=== PATIENT | male | born 1960 | race Caucasian/White ===

== ENCOUNTER 2017-06-23 05:53 | Emergency (ER) | payer BC, OTHER ==
[2017-06-23] MEDS ORDERED: SODIUM CHLORIDE 0.9% 1,000 ML IV STA (06:10)
[2017-06-23] MEDS ORDERED: SODIUM CHLORIDE 0.9% 2,000 ML IV STA (06:10)
[2017-06-23] MEDS ORDERED: ONDANSETRON 4 MG/2 ML VIAL IVP STA (06:10)
[2017-06-23 06:50] LABS: Basophils % (A) 0 %; CH 31.5; CHCM 34.1; Eosinophils # (A) 0.1 k/uL (0-0.7); Eosinophils % (A) 2 %; HCT 47.8 % (39.0-53.0); HDW 2.33; Luc # (Auto) 0.04; Luc % (Auto) 0; Lymphocytes # (A) 0.2 k/uL (1.0-4.8); Lymphocytes % (A) 2 %; MCHC 33.5 g/dL (31.0-37.0); MCV 92.7 fL (80.0-100.0); Mean Platelet Volume 7.6; Monocytes # (A) 0.4 k/uL (0-1.0); Monocytes % (A) 4 %; Neutrophils # (A) 8.6 k/uL (1.3-7.7); Neutrophils % (A) 92 %; RBC 5.16 m/uL (4.30-5.90); RDW 14.1 % (11.5-15.5); WBC 9.3 k/uL (3.8-10.6); WBC (Perox) 9.59
--- NOTE | 2017-06-23 06:50 | ED ---
Nausea/Vomiting/Diarrhea HPI - General Source: patient, family, RN notes reviewed Mode of arrival: ambulatory Limitations: no limitations - History of Present Illness MD complaint: nausea, vomiting <Gamal Garza - Last Filed: 06/23/17 06:56> <Gamal Craig - Last Filed: 06/23/17 07:45> - General Chief complaint: Nausea/Vomiting/Diarrhea Stated complaint: Vomiting Time Seen by Provider: 06/23/17 06:05 - History of Present Illness Initial comments: This is a 56-year-old male who states he had the onset of nausea vomiting last evening approximately 11 PM. This was several hours after eating at a local restaurant. He has some abdominal pain he's vomited multiple times he complains of a headache no overt dizziness no fevers or sweats he does some chills. (Gamal Garza) - Related Data Home Medications Medication Instructions Recorded Confirmed Atorvastatin [Lipitor] 20 mg PO DAILY 06/23/17 06/23/17 Lisinopril [Prinivil] 10 mg PO DAILY 06/23/17 06/23/17 Meloxicam [Mobic] 15 mg PO DAILY 06/23/17 06/23/17 Previous Rx's Medication Instructions Recorded Ondansetron Odt [Zofran Odt] 4 mg PO Q8HR PRN #10 tab 06/23/17 Allergies Allergy/AdvReac Type Severity Reaction Status Date / Time No Known Allergies Allergy Verified 06/23/17 07:03 Review of Systems ROS Other: All systems not noted in ROS Statement are negative. <Gamal Garza - Last Filed: 06/23/17 06:56> ROS Other: All systems not noted in ROS Statement are negative. <Gamal Craig - Last Filed: 06/23/17 07:45> ROS Statement: Those systems with pertinent positive or pertinent negative responses have been documented in the HPI. Past Medical History Past Medical History: Hypertension History of Any Multi-Drug Resistant Organisms: None Reported Past Surgical History: Hernia Repair, Orthopedic Surgery Additional Past Surgical History / Comment(s): right knee Past Psychological History: No Psychological Hx Reported Smoking Status: Former smoker Past Alcohol Use History: None Reported Past Drug Use History: None Reported <Gamal Garza - Last Filed: 06/23/17 06:56> General Exam Limitations: no limitations General appearance: alert, in no apparent distress Head exam: Present: atraumatic, normocephalic, normal inspection Eye exam: Present: normal appearance, PERRL, EOMI. Absent: scleral icterus, conjunctival injection, periorbital swelling ENT exam: Present: mucous membranes dry Neck exam: Present: normal inspection. Absent: tenderness, meningismus, lymphadenopathy Respiratory exam: Present: normal lung sounds bilaterally. Absent: respiratory distress, wheezes, rales, rhonchi, stridor Cardiovascular Exam: Present: normal rhythm, tachycardia, normal heart sounds. Absent: systolic murmur, diastolic murmur, rubs, gallop, clicks GI/Abdominal exam: Present: soft, normal bowel sounds. Absent: distended, tenderness, guarding, rebound, rigid Extremities exam: Present: normal inspection, full ROM, normal capillary refill. Absent: tenderness, pedal edema, joint swelling, calf tenderness Back exam: Present: normal inspection Neurological exam: Present: alert, oriented X3, CN II-XII intact Psychiatric exam: Present: normal affect, normal mood Skin exam: Present: warm, dry, intact, normal color. Absent: rash <Gamal Garza - Last Filed: 06/23/17 06:56> <Gamal Craig N - Last Filed: 06/23/17 07:45> - General Exam Comments Initial Comments: Is a well-developed well-nourished awake alert oriented 3 male (Gamal Garza) Course <Gamal Garza - Last Filed: 06/23/17 06:56> <Gamal Craig - Last Filed: 06/23/17 07:45> Vital Signs 06/23/17 06/23/17 05:55 07:06 Temperature 98.8 F Pulse Rate 119 H 102 H Respiratory 20 18 Rate Blood Pressure 139/93 124/79 O2 Sat by Pulse 96 96 Oximetry - Reevaluation(s) Reevaluation #1: 06/23/17 06:56 The patient is started feel little bit better at this point labs are pending at this time the patient's care will be endorsed to Dr. Craig will make the final disposition (Gamal Garza) Medical Decision Making <Gamal Garza - Last Filed: 06/23/17 06:56> - Lab Data Result diagrams: 06/23/17 06:41 06/23/17 06:41 <Gamal Craig - Last Filed: 06/23/17 07:45> - Medical Decision Making Patient's care was signed out at shift change, awaiting laboratory studies and x -ray. I did reevaluate the patient. History consistent with food poisoning versus gastroenteritis. Patient is feeling much better. Abdomen soft nontender. Normal bowel sounds. Laboratory studies reveal white blood cell count 9.3, electrolytes within normal limits. X-ray of the abdomen shows normal gas pattern, no acute findings. EKG shows sinus rhythm with PACs, ventricular rate 99, MA interval 174, QRS duration 86, QTC 444, no signs of ischemia. Patient will return to emergency department with worsening symptoms. (Gamal Craig) - Lab Data Lab Results 06/23/17 06/23/17 06/23/17 Range/Units 06:41 06:41 06:41 WBC 9.3 (3.8-10.6) k/uL RBC 5.16 (4.30-5.90) m/uL Hgb 16.0 (13.0-17.5) gm/dL Hct 47.8 (39.0-53.0) % MCV 92.7 (80.0-100.0) fL MCH 31.0 (25.0-35.0) pg MCHC 33.5 (31.0-37.0) g/dL RDW 14.1 (11.5-15.5) % Plt Count 198 (150-450) k/uL Neutrophils % 92 % Lymphocytes % 2 % Monocytes % 4 % Eosinophils % 2 % Basophils % 0 % Neutrophils # 8.6 H (1.3-7.7) k/uL Lymphocytes # 0.2 L (1.0-4.8) k/uL Monocytes # 0.4 (0-1.0) k/uL Eosinophils # 0.1 (0-0.7) k/uL Basophils # 0.0 (0-0.2) k/uL Sodium 141 (137-145) mmol/L Potassium 4.0 (3.5-5.1) mmol/L Chloride 108 H (98-107) mmol/L Carbon Dioxide 22 (22-30) mmol/L Anion Gap 11 mmol/L BUN 20 (9-20) mg/dL Creatinine 0.82 (0.66-1.25) mg/dL Est GFR (MDRD) Af Amer >60 (>60 ml/min/1.73 sqM) Est GFR (MDRD) Non-Af >60 (>60 ml/min/1.73 sqM) Glucose 140 H (74-99) mg/dL Calcium 8.9 (8.4-10.2) mg/dL Total Bilirubin 1.1 (0.2-1.3) mg/dL AST 24 (17-59) U/L ALT 40 (21-72) U/L Alkaline Phosphatase 62 (38-126) U/L Total Creatine Kinase 79 (55-170) U/L CK-MB (CK-2) <0.2 (0.0-2.4) ng/mL CK-MB (CK-2) Rel Index Total Protein 7.2 (6.3-8.2) g/dL Albumin 4.3 (3.5-5.0) g/dL Amylase 65 (30-110) U/L Lipase 93 (23-300) U/L Disposition <Gamal Garza - Last Filed: 06/23/17 06:56> Time of Disposition: 07:43 <Gamal Craig - Last Filed: 06/23/17 07:45> Clinical Impression: Food poisoning, Nausea & vomiting Disposition: HOME SELF-CARE Condition: Good Instructions: Acute Nausea and Vomiting (ED) Prescriptions: Ondansetron Odt [Zofran Odt] 4 mg PO Q8HR PRN #10 tab PRN Reason: Vomiting Referrals: Jm Lafleur MD [Primary Care Provider] - 1-2 days
--- NOTE | 2017-06-23 06:57 | XR ---
EXAMINATION TYPE: XR KUB DATE OF EXAM: 06/23/2017 6:51 AM CLINICAL HISTORY: Vomiting constantly since last night. TECHNIQUE: Two Upright KUB images of the abdomen are obtained. COMPARISON: None. FINDINGS: Scattered gas is seen in non-distended stomach and small bowel loops. Gas is seen in non-di stended colon. There is no visceromegaly, pneumoperitoneum, or abnormal calcification appreciated. Th e lung bases are clear and the osseous structures are intact. IMPRESSION: Overall nonobstructive bowel gas pattern.
[2017-06-23 07:00] LABS: ALT 40 U/L (21-72); AST 24 U/L (17-59); Alkaline Phosphatase 62 U/L (38-126); Amylase 65 U/L (30-110); Anion Gap 11 mmol/L; Blood Urea Nitrogen 20 mg/dL (9-20); Calcium 8.9 mg/dL (8.4-10.2); Carbon Dioxide 22 mmol/L (22-30); Chloride 108 mmol/L (98-107); Glucose 140 mg/dL (74-99); Non-African American GFR(MDRD) >60 (>60 ml/min/1.73 sqM); Sodium 141 mmol/L (137-145); Total Bilirubin 1.1 mg/dL (0.2-1.3); Total Protein 7.2 g/dL (6.3-8.2)
[2017-06-23 07:09] LABS: Creatine Kinase 79 U/L (55-170)
[2017-06-23 07:19] LABS: Creatine Kinase MB <0.2 ng/mL (0.0-2.4)
[2017-06-23 08:17] VITALS: BP 118/72; PULSE 92; RESP 16; TEMP 98.2
== END 2017-06-23 08:15 | disposition home or self-care (01) ==
LOC: EC 05:53
DX: T62.91XA Toxic effect of unspecified noxious substance eaten as food, accidental (unintentional), initial encounter (principal); R51 Headache; I10 Essential (primary) hypertension; Z87.891 Personal history of nicotine dependence; Z79.899 Other long term (current) drug therapy; Z79.1 Long term (current) use of non-steroidal anti-inflammatories (NSAID)
CPT/HCPCS: 36415; 74000; 80053; 82150; 82550; 82553; 83690; 84484; 85025; 93005; 96361; 96374; 99284

== ENCOUNTER 2018-06-28 15:48 | Emergency (ER) | payer BC, OTHER ==
[2018-06-28 16:01] VITALS: RESP 18; TEMP 98.7
[2018-06-28] MEDS ORDERED: MORPHINE SULFATE 2 MG/ML SYRINGE IVP STA (16:28)
--- NOTE | 2018-06-28 16:34 | ED ---
General Adult HPI - General Chief complaint: Fall Stated complaint: [facility] - fall, lt hip fx Time Seen by Provider: 06/28/18 16:15 Source: patient, EMS, RN notes reviewed Mode of arrival: EMS Limitations: no limitations - History of Present Illness Initial comments: Patient is a pleasant 57-year-old male presenting to the emergency department following a fall. Patient was climbing up a truck approximately 8-10 feet high trying to move a 2 x 4. [address] in the patient lost his balance. Patient fell directly onto his left lateral hip. No head injury or loss of consciousness. No neck or back pain. No chest pain or dyspnea. No abdominal pain. Patient was able to take a few steps following the fall however was advised to sit down. Patient has noticed some swelling. No history of previous injury to this area before. - Related Data Home Medications Medication Instructions Recorded Confirmed Atorvastatin [Lipitor] 20 mg PO DAILY 06/23/17 06/28/18 Meloxicam [Mobic] 15 mg PO DAILY 06/23/17 06/28/18 Lisinopril 20 mg PO DAILY 06/28/18 06/28/18 Allergies Allergy/AdvReac Type Severity Reaction Status Date / Time No Known Allergies Allergy Verified 06/28/18 16:01 Review of Systems ROS Statement: Those systems with pertinent positive or pertinent negative responses have been documented in the HPI. ROS Other: All systems not noted in ROS Statement are negative. Constitutional: Denies: fever Eyes: Denies: eye pain ENT: Denies: ear pain Respiratory: Denies: cough Cardiovascular: Denies: chest pain Endocrine: Denies: fatigue Gastrointestinal: Denies: abdominal pain Genitourinary: Denies: dysuria Musculoskeletal: Denies: back pain Skin: Denies: rash Neurological: Denies: headache, weakness, confusion Past Medical History Past Medical History: Hypertension History of Any Multi-Drug Resistant Organisms: None Reported Past Surgical History: Hernia Repair, Orthopedic Surgery Additional Past Surgical History / Comment(s): right knee Past Psychological History: No Psychological Hx Reported Smoking Status: Former smoker Past Alcohol Use History: Occasional Past Drug Use History: None Reported General Exam Limitations: no limitations General appearance: alert, in no apparent distress Head exam: Present: atraumatic, normocephalic Eye exam: Present: normal appearance, PERRL ENT exam: Present: normal oropharynx Neck exam: Present: normal inspection, full ROM. Absent: tenderness Respiratory exam: Present: normal lung sounds bilaterally. Absent: chest wall tenderness Cardiovascular Exam: Present: regular rate, normal rhythm Expanded Peripheral pulses: 2+: Dorsalis Pedis (R), Dorsalis Pedis (L) GI/Abdominal exam: Present: soft. Absent: distended, tenderness, guarding, rebound, rigid, pulsatile mass Extremities exam: Present: tenderness (Left lateral hip region with moderate swelling and mild tenderness), other (Distally the extremities are neurovascularly intact). Absent: calf tenderness Back exam: Present: normal inspection. Absent: tenderness, vertebral tenderness Neurological exam: Present: alert. Absent: motor sensory deficit Expanded Sensory exam: Upper Extremity Light Touch: Normal, Lower Extremity Light Touch: Normal Motor strength exam: RLE: 5, LLE: 5 Eye Response: (4) open spontaneously Motor Response: (6) obeys commands Verbal Response: (5) oriented Psychiatric exam: Present: normal affect, normal mood Skin exam: Present: abrasion (Left lateral thigh) Course Vital Signs 06/28/18 06/28/18 06/28/18 15:50 16:10 16:50 Temperature 98.7 F Pulse Rate 104 H 99 Respiratory 18 Rate Blood Pressure 149/92 151/110 151/110 O2 Sat by Pulse 95 97 Oximetry Medical Decision Making - Medical Decision Making Patient reevaluated and resting comfortably in bed. Patient and family updated on results and need for follow-up. Patient is able to ambulate with some discomfort. - Radiology Data Radiology results: image reviewed (Left femur x-ray, pelvis x-ray, chest x-ray without acute abnormality.) Disposition Clinical Impression: Fall, Contusion, hip Disposition: HOME SELF-CARE Condition: Stable Instructions: Hip Contusion (ED) Additional Instructions: Please follow-up with primary care physician in the next day or 2 for recheck. [id number] Motrin as needed. Ice to affected area. Return for unable to walk, increased pain, swelling, leg problems, worsening symptoms or other concerns. Is patient prescribed a controlled substance at d/c from ED?: No Referrals: Jm Lafleur MD [Primary Care Provider] - 1-2 days Time of Disposition: 17:56
--- NOTE | 2018-06-28 17:07 | XR ---
EXAMINATION TYPE: XR pelvis AP view DATE OF EXAM: 06/28/2018 COMPARISON: NONE HISTORY: Left hip pain TECHNIQUE: Single view FINDINGS: Pelvic ring is intact. Proximal femurs and hip joints are intact. Sacroiliac joints appear normal. IMPRESSION: Normal pelvis
--- NOTE | 2018-06-28 17:17 | XR ---
EXAMINATION TYPE: XR chest 1V portable DATE OF EXAM: 06/28/2018 COMPARISON: NONE HISTORY: Chest pain TECHNIQUE: Single frontal view of the chest is obtained. FINDINGS: Heart and mediastinum are normal. Lungs are clear. Diaphragm is normal. Bony thorax is int act. Pulmonary vascularity is normal. IMPRESSION: Normal chest
--- NOTE | 2018-06-28 17:27 | XR ---
EXAMINATION TYPE: XR femur LT DATE OF EXAM: 06/28/2018 COMPARISON: NONE HISTORY: Hip pain TECHNIQUE: 4 views FINDINGS: Knee joint and hip joint appear intact. I see no fracture nor dislocation. There is narrowi ng of the knee joint spaces with spurring of the femoral and tibial condyles. There is spurring on th e patella. IMPRESSION: Osteoarthritis in the left knee. No fracture seen. Normal hip joint space.
[2018-06-28] MEDS ORDERED: HYDROcodone/APAP 5-325MG 1 EACH TAB PO STA (17:53)
[2018-06-28] MEDS ORDERED: DIPH,PERTUS(ACELL)TETVAC-LF 0.5 ML VIAL IM ONE (17:55)
[2018-06-28 18:43] VITALS: BP 140/97; PULSE 98
== END 2018-06-28 18:41 | disposition home or self-care (01) ==
LOC: EC 15:48
DX: S70.02XA Contusion of left hip, initial encounter (principal); Z23 Encounter for immunization; I10 Essential (primary) hypertension; Z87.891 Personal history of nicotine dependence; Z79.1 Long term (current) use of non-steroidal anti-inflammatories (NSAID); Z79.899 Other long term (current) drug therapy; W17.89XA Other fall from one level to another, initial encounter; Y92.89 Other specified places as the place of occurrence of the external cause
CPT/HCPCS: 72170; 73552; 71045; 90715; 99284; 96374; 90471; J2270

== ENCOUNTER → 2019-01-17 | Outpatient (CLI) | payer OTHER ==
--- NOTE | 2019-01-17 12:23 | XR ---
EXAMINATION TYPE: XR finger RT DATE OF EXAM: 01/17/2019 COMPARISON: NONE HISTORY: Laceration from glass or metal of the right index finger near the proximal phalanx. TECHNIQUE: 2 views of the right index finger/second digit were obtained. FINDINGS: There is soft tissue swelling seen of the radial aspect of the second right digit/index fin beck overlying the proximal phalanx and proximal interphalangeal joint. No radiopaque foreign body is seen at this location, however there is a punctate density seen of the radial aspect of the third dig it/long finger within the soft tissues overlying the middle phalanx at the mid diaphysis. This is obs cured on the lateral view. Within the visualized portions the right hand there is moderate arthropath y in the distribution of osteoarthritis at the with joint space narrowing, subchondral cyst formation , and marginal osteophytes greatest within the first carpal metacarpal joint. No acute fracture or di slocation is seen. IMPRESSION: 1. Soft tissue swelling at the radial aspect of the second digit/index finger of the right hand overl ritchie the proximal phalanx and proximal interphalangeal joint without radiopaque foreign body. 2. Punctate 1 to 2 mm radiopaque foreign body within the radial aspect of the third digit overlying t he mid diaphysis of the middle phalanx seen on the frontal view only and obscured on the lateral view . 3. Arthropathy as described above.
== END | disposition home or self-care (01) ==
LOC: RADXRYALE 11:17
PROVIDERS: ATTEND Physician Assistant Medical
DX: S61.220A Laceration with foreign body of right index finger without damage to nail, initial encounter (principal); M19.041 Primary osteoarthritis, right hand; M79.89 Other specified soft tissue disorders

== ENCOUNTER 2019-06-05 03:53 | Emergency (ER) | payer BC, OTHER ==
[2019-06-05] MEDS ORDERED: KETOROLAC 30 MG/ML 1 ML VIAL IVP STA (04:50)
[2019-06-05 05:21] LABS: Basophils # (A) 0.1 k/uL (0-0.2); Basophils % (A) 1 %; Eosinophils # (A) 0.2 k/uL (0-0.7); Eosinophils % (A) 3 %; HCT 43.9 % (39.0-53.0); HGB 15.3 gm/dL (13.0-17.5); Lymphocytes # (A) 0.7 k/uL (1.0-4.8); Lymphocytes % (A) 10 %; MCH 32.5 pg (25.0-35.0); MCHC 34.9 g/dL (31.0-37.0); Mean Platelet Volume 6.3; Monocytes # (A) 0.6 k/uL (0-1.0); Monocytes % (A) 8 %; Neutrophils # (A) 5.2 k/uL (1.3-7.7); Neutrophils % (A) 76 %; Platelet Count 249 k/uL (150-450); RBC 4.72 m/uL (4.30-5.90); RDW 12.5 % (11.5-15.5); WBC 6.9 k/uL (3.8-10.6)
[2019-06-05 05:28] LABS: ALT 25 U/L (21-72); AST 23 U/L (17-59); African American GFR (CKD) >90 (>60 ml/min/1.73 sqM); Albumin 4.3 g/dL (3.5-5.0); Alkaline Phosphatase 54 U/L (38-126); Anion Gap 9 mmol/L; Blood Urea Nitrogen 18 mg/dL (9-20); Calcium 9.7 mg/dL (8.4-10.2); Carbon Dioxide 25 mmol/L (22-30); Chloride 103 mmol/L (98-107); Creatine Kinase 73 U/L (55-170); Glucose 119 mg/dL (74-99); Magnesium 2.2 mg/dL (1.6-2.3); Potassium 4.4 mmol/L (3.5-5.1); Sodium 137 mmol/L (137-145); Total Bilirubin 0.6 mg/dL (0.2-1.3); Total Protein 7.2 g/dL (6.3-8.2)
--- NOTE | 2019-06-05 05:48 | ED ---
Extremity Problem HPI - General Chief complaint: Extremity Problem,Nontraumatic Stated complaint: leg pain Time Seen by Provider: 06/05/19 04:05 Source: patient Mode of arrival: ambulatory Limitations: no limitations - History of Present Illness Initial comments: Jason zuniga [facility] presents the ER today for evaluation of left ankle pain radiating to the knee. 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 He states that he's had some aching in his leg for a few days, tonight he felt like the pain in his ankle was worse which prompted him come to the ER for evaluation. Patient has no history of clotting disorder, DVT or PE. He denies any specific injury to the ankle though he does report he is rolled in the past. He reports that pain is usually a slight the ankle but now seems to be radiating all the way to his knee that this could be because he's been limping. - Related Data Home Medications Medication Instructions Recorded Confirmed Atorvastatin [Lipitor] 20 mg PO DAILY 06/23/17 06/28/18 Meloxicam [Mobic] 15 mg PO DAILY 06/23/17 06/28/18 Lisinopril 20 mg PO DAILY 06/28/18 06/28/18 Allergies Allergy/AdvReac Type Severity Reaction Status Date / Time No Known Allergies Allergy Verified 06/05/19 04:04 Review of Systems ROS Statement: Those systems with pertinent positive or pertinent negative responses have been documented in the HPI. ROS Other: All systems not noted in ROS Statement are negative. Past Medical History Past Medical History: Hypertension History of Any Multi-Drug Resistant Organisms: None Reported Past Surgical History: Hernia Repair, Orthopedic Surgery Additional Past Surgical History / Comment(s): right knee Past Psychological History: No Psychological Hx Reported Smoking Status: Former smoker Past Alcohol Use History: Occasional Past Drug Use History: None Reported General Exam - General Exam Comments Initial Comments: Physical Exam GENERAL: Patient is well-developed and well-nourished. Patient is nontoxic and well- hydrated and is in no distress. HENT: Normocephalic, Atraumatic. EYES: PERRL, EOMI PULMONARY: Unlabored respirations. No audible rales rhonchi or wheezing was noted. CARDIOVASCULAR: There is a regular rate and rhythm without any murmurs gallops or rubs. ABDOMEN: Soft and nontender with normal bowel sounds. SKIN: Skin is clear with no lesions or rashes and otherwise unremarkable. : Deferred NEUROLOGIC: Patient is alert and oriented x3. Moving all extremities spontaneously MUSCULOSKELETAL: Normal extremities with adequate strength and full range of motion. No lower extremity swelling or edema. No calf tenderness. Negative Homans sign PSYCHIATRIC: Normal psychiatric evaluation. Limitations: no limitations Course Vital Signs 06/05/19 06/05/19 04:01 07:02 Temperature 97.8 F 98.1 F Pulse Rate 95 74 Respiratory 18 16 Rate Blood Pressure 136/93 130/67 O2 Sat by Pulse 96 97 Oximetry Medical Decision Making - Medical Decision Making The patient was seen and evaluated, history was obtained from the patient at bedside excepts history and physical exam are unremarkable I have concern that the patient likely has a repetitive use injury of the ankle with compensatory pain in the knee hip and lower back. Labs were obtained, which her lites are normal creatinine kinase is normal uric acid is normal, d-dimer is not elevated there is no signs of DVT. These results were discussed patient and at bedside are comfortable with plan for discharge home and supportive care. Patient will be given 3 days off work at which time he'll follow-up with his primary care physician. - Lab Data Result diagrams: 06/05/19 05:08 06/05/19 05:08 Lab Results 06/05/19 06/05/19 06/05/19 Range/Units 05:08 05:08 05:08 WBC 6.9 (3.8-10.6) k/uL RBC 4.72 (4.30-5.90) m/uL Hgb 15.3 (13.0-17.5) gm/dL Hct 43.9 (39.0-53.0) % MCV 93.0 (80.0-100.0) fL MCH 32.5 (25.0-35.0) pg MCHC 34.9 (31.0-37.0) g/dL RDW 12.5 (11.5-15.5) % Plt Count 249 (150-450) k/uL Neutrophils % 76 % Lymphocytes % 10 % Monocytes % 8 % Eosinophils % 3 % Basophils % 1 % Neutrophils # 5.2 (1.3-7.7) k/uL Lymphocytes # 0.7 L (1.0-4.8) k/uL Monocytes # 0.6 (0-1.0) k/uL Eosinophils # 0.2 (0-0.7) k/uL Basophils # 0.1 (0-0.2) k/uL D-Dimer 0.34 (<0.60) mg/L FEU Sodium 137 (137-145) mmol/L Potassium 4.4 (3.5-5.1) mmol/L Chloride 103 (98-107) mmol/L Carbon Dioxide 25 (22-30) mmol/L Anion Gap 9 mmol/L BUN 18 (9-20) mg/dL Creatinine 0.82 (0.66-1.25) mg/dL Est GFR (CKD-EPI)AfAm >90 (>60 ml/min/1.73 sqM) Est GFR (CKD-EPI)NonAf >90 (>60 ml/min/1.73 sqM) Glucose 119 H (74-99) mg/dL Uric Acid 5.0 (3.5-8.5) mg/dL Calcium 9.7 (8.4-10.2) mg/dL Magnesium 2.2 (1.6-2.3) mg/dL Total Bilirubin 0.6 (0.2-1.3) mg/dL AST 23 (17-59) U/L ALT 25 (21-72) U/L Alkaline Phosphatase 54 (38-126) U/L Creatine Kinase 73 (55-170) U/L Total Protein 7.2 (6.3-8.2) g/dL Albumin 4.3 (3.5-5.0) g/dL Disposition Clinical Impression: Osteoarthritis, Calcaneal spur Disposition: HOME SELF-CARE Condition: Stable Instructions (If sedation given, give patient instructions): Osteoarthritis (DC) Is patient prescribed a controlled substance at d/c from ED?: No Referrals: Jm Lafleur MD [Primary Care Provider] - 1-2 days
--- NOTE | 2019-06-05 06:34 | XR ---
EXAM: XR Left Knee, 3 Views CLINICAL HISTORY: ITS.REASON XR Reason: pain from ankle to knee TECHNIQUE: Three views of the left knee. COMPARISON: No relevant prior studies available. FINDINGS: Bones/joints: No acute fracture. No dislocation. Mild medial and lateral compartment joint space loss with spurring. Soft tissues: Unremarkable. IMPRESSION: No acute osseous abnormalities. Mild osteoarthrosis.
--- NOTE | 2019-06-05 06:50 | XR ---
EXAM: XR Left Ankle Complete, 2 Views CLINICAL HISTORY: ITS.REASON XR Reason: pain from ankle to knee TECHNIQUE: 2 views of the left ankle. COMPARISON: No relevant prior studies available. FINDINGS: Bones/joints: No acute fracture. No dislocation. Plantar enthesophyte. Soft tissues: Joint effusion. IMPRESSION: No acute osseous abnormalities.
[2019-06-05 07:04] VITALS: BP 130/67; PULSE 74; RESP 16; TEMP 98.1
== END 2019-06-05 07:04 | disposition home or self-care (01) ==
LOC: EC 03:53
DX: M17.12 Unilateral primary osteoarthritis, left knee (principal); M77.32 Calcaneal spur, left foot; I10 Essential (primary) hypertension; Z79.1 Long term (current) use of non-steroidal anti-inflammatories (NSAID); Z79.899 Other long term (current) drug therapy; Z87.891 Personal history of nicotine dependence
CPT/HCPCS: 36415; 85379; 80053; 82550; 83735; 84550; 85025; 73560; 73600; 99283; 96374; J1885

== ENCOUNTER → 2019-07-24 | Outpatient (CLI) | payer BC ==
--- NOTE | 2019-07-24 23:04 | XR ---
EXAMINATION TYPE: XR knee complete LT DATE OF EXAM: 07/24/2019 CLINICAL HISTORY: Left knee pain. TECHNIQUE: Three views of the left knee are obtained. COMPARISON: Left knee x-ray June 05, 2019 FINDINGS: There is no acute fracture/dislocation evident in left knee. Persistent genu varum positio heather. Persistent moderate to severe narrowing with moderate spurring medial tibial femoral compartmen t. Persistent mild narrowing with mild to moderate spurring lateral tibiofemoral compartment. Persist ent moderate to severe narrowing with mild to moderate spurring patellofemoral compartment. Overlying clothing material is seen. No significant change from prior. IMPRESSION: As above.
--- NOTE | 2019-07-24 23:05 | XR ---
EXAMINATION TYPE: XR lumbar spine 2 or 3V DATE OF EXAM: 07/24/2019 CLINICAL HISTORY: Chronic low back pain. TECHNIQUE: Frontal and lateral images of the lumbar spine are obtained. COMPARISON: None. FINDINGS: There are 5 lumbar type vertebral bodies identified. The lumbar spine shows satisfactory alignment without evidence of acute fracture or dislocation. Mild disc space narrowing L5-S1 level. V ertebral body heights and disk space heights otherwise are within normal limits. Mild multilevel ante rior spurring. The overlying soft tissue appears unremarkable. IMPRESSION: As above.
== END | disposition home or self-care (01) ==
LOC: RADXRMAIN 18:32
PROVIDERS: ATTEND Family Medicine
DX: M99.73 Connective tissue and disc stenosis of intervertebral foramina of lumbar region (principal); M21.162 Varus deformity, not elsewhere classified, left knee; M76.892 Other specified enthesopathies of left lower limb, excluding foot; R93.6 Abnormal findings on diagnostic imaging of limbs
CPT/HCPCS: 72100

== ENCOUNTER → 2019-12-15 | Outpatient (CLI) | payer BC | END | disposition home or self-care (01) | LOC: LABWHC1 09:44 | PROVIDERS: ATTEND Physical Medicine & Rehabilitation | DX: U07.1 COVID-19 (principal) | CPT/HCPCS: 87635 ==

== ENCOUNTER → 2020-05-21 | Outpatient (CLI) | payer BC ==
--- NOTE | 2020-05-21 20:29 | CT ---
EXAMINATION TYPE: CT brain wo con DATE OF EXAM: 05/21/2020 HISTORY: Bilateral hand tremors. Leg weakness. CT DLP: 1047 mGycm. Automated Exposure Control for Dose Reduction was Utilized. TECHNIQUE: CT scan of the head is performed without contrast. COMPARISON: None. FINDINGS: There is no acute intracranial hemorrhage or midline shift identified. There is diffuse v entricular and sulcal prominence consistent with diffuse age-related cerebral atrophy. There is low- attenuation in the periventricular white matter consistent with chronic small vessel ischemic change. The globes are intact and the visualized sinuses are clear. IMPRESSION: No acute intracranial hemorrhage or midline shift. There is mild diffuse age-related ce rebral atrophy and chronic small vessel ischemic change noted.
== END | disposition home or self-care (01) ==
LOC: RADCTMAIN 18:40
PROVIDERS: ATTEND Family Medicine
DX: I67.82 Cerebral ischemia (principal); G31.1 Senile degeneration of brain, not elsewhere classified
CPT/HCPCS: 70450

== ENCOUNTER → 2020-08-30 | Outpatient (CLI) | payer BC ==
[2020-08-30 15:09] LABS: Basophils # (A) 0.1 k/uL (0-0.2); Basophils % (A) 1 %; Eosinophils # (A) 0.1 k/uL (0-0.7); Eosinophils % (A) 1 %; HCT 47.2 % (39.0-53.0); HGB 16.4 gm/dL (13.0-17.5); Lymphocytes # (A) 1.1 k/uL (1.0-4.8); Lymphocytes % (A) 12 %; MCH 31.7 pg (25.0-35.0); MCHC 34.8 g/dL (31.0-37.0); MCV 91.2 fL (80.0-100.0); Mean Platelet Volume 7.5; Monocytes # (A) 0.8 k/uL (0-1.0); Monocytes % (A) 8 %; Neutrophils # (A) 6.8 k/uL (1.3-7.7); Neutrophils % (A) 76 %; Platelet Count 299 k/uL (150-450); RBC 5.17 m/uL (4.30-5.90); RDW 12.4 % (11.5-15.5)
[2020-08-30 15:12] LABS: Appearance,Urine Clear (Clear); Bilirubin,Urine Negative (Negative); Blood,Urine Negative (Negative); Color,Urine Yellow; Glucose,Urine (UA) Negative (Negative); Ketones,Urine Negative (Negative); Leukocyte Esterase,Urine Negative (Negative); Nitrite,Urine Negative (Negative); Protein,Urine Trace (Negative); Urobilinogen,Urine <2.0 mg/dL (<2.0)
--- NOTE | 2020-08-30 15:16 | XR ---
EXAMINATION TYPE: XR chest 2V DATE OF EXAM: 08/30/2020 HISTORY: Shortness of breath. COMPARISON: 06/28/2018 TECHNIQUE: Single view of the chest is submitted. FINDINGS: Demonstrated are scattered senescent parenchymal change. There is no evidence for focal infiltrate. The heart is stable. Hilar and mediastinal structures are within normal limits. Degenerative changes are seen of the dorsal spine. IMPRESSION: 1. Chronic changes without evidence for acute pulmonary disease.
[2020-08-30 15:19] LABS: Partial Thromboplastin Time 22.6 sec (22.0-30.0); Prothrombin Time 10.6 sec (9.0-12.0)
[2020-08-30 15:33] LABS: Calcium 9.9 mg/dL (8.4-10.2); Potassium 4.6 mmol/L (3.5-5.1)
== END | disposition home or self-care (01) ==
LOC: LABPAT 14:15
PROVIDERS: ATTEND Orthopaedic Surgery Orthopaedic Surgery of the Spine
DX: Z01.818 Encounter for other preprocedural examination (principal); M48.061 Spinal stenosis, lumbar region without neurogenic claudication
CPT/HCPCS: 71046; 80048; 81003; 85025; 85610; 85730

== ENCOUNTER 2020-09-11 07:08 | Observation (INO) | payer BC ==
[2020-09-06 16:13] VITALS: BMI 31.8
[~2020-09-11 07:08] MED LIST: DEXAMETHASONE SOD PHOSPHATE 4 MG/ML 1 ML VIAL IV PRN; LIDOCAINE 1% (10MG/ML) FOR IV START INTRADERMA PRN; ONDANSETRON 4 MG/2 ML VIAL IVP PRN; ceFAZolin 1,000 MG in SODIUM CHLORIDE 0.9% IRRIGATIO 1,000 ML IRRIGATION PRN
[2020-09-11] MEDS: LACTATED RINGERS 1,000 ML IV SCH ×2 (07:59→19:39)
[2020-09-11] MEDS ORDERED: SUCCINYLCHOLINE CHLORIDE 100 MG/5 ML SYR IV ONE (08:25)
[2020-09-11] MEDS ORDERED: GLYCOPYRROLATE 0.2 MG/ML 2 ML VIAL ONE (08:25)
[2020-09-11] MEDS ORDERED: LIDOCAINE 1% INJ 10MG/ML (20 ML MDV) ONE (08:25)
[2020-09-11] MEDS ORDERED: ROCURONIUM 10 MG/ML (5 ML VIAL) IV ONE (08:25)
[2020-09-11] MEDS ORDERED: MIDAZOLAM 2 MG/2 ML VIAL ONE (08:25)
[2020-09-11] MEDS ORDERED: ePHEDrine SULFATE/0.9% NACL/PF 50 MG/5 ML SYRINGE IV ONE (08:25)
[2020-09-11] MEDS ORDERED: PHENYLEPHRINE-0.9% NACL SYG 1,000 MCG/10 ML SYRINGE ONE (08:25)
[2020-09-11] MEDS ORDERED: NEOSTIGMINE 1 MG/ML 10 ML VIAL ONE (08:25)
[2020-09-11] MEDS ORDERED: PROPOFOL 10 MG/ML 20 ML VIAL IV ONE (08:25)
[2020-09-11] MEDS ORDERED: KETAMINE 10 MG/ML 20 ML VIAL ONE (08:25)
[2020-09-11] MEDS ORDERED: fentaNYL (PF) 50 MCG/ML 2 ML AMP ONE (08:25)
[2020-09-11] MEDS ORDERED: THROMBIN (BOVINE) 5,000 UNIT VIAL TOPICAL ONE (08:30)
[2020-09-11] MEDS ORDERED: LIDOCAINE 0.5%-EPI 1:200,000 50 ML VIAL SQ ONE (08:30)
[2020-09-11] MEDS ORDERED: methylPREDNISolone ACETATE 40 MG/ML 1 ML VIAL MISCELLANE ONE (08:30)
[2020-09-11] MEDS ORDERED: GELATIN SPONGE,ABSORB (LARGE) 1 EACH SPONGE TOPICAL ONE (08:30)
[2020-09-11] MEDS ORDERED: LACTATED RINGERS 1,000 ML IV ONE (09:15)
--- NOTE | 2020-09-11 09:23 | FL ---
Fluoroscopy History: LUMBAR SPINAL STENOSIS 1 IMAGE, LUMBAR LAMINECTOMY. 1 SEC FL.
[2020-09-11] MEDS ORDERED: HYDROmorphone 1 MG/ML 1 ML SYRINGE IVP PRN (10:16)
[2020-09-11] MEDS ORDERED: BENZOCAINE/MENTHOL LOZENG 1 EACH LOZENGE MUCOUS MEM PRN (10:16)
[2020-09-11] MEDS ORDERED: IBUPROFEN 600 MG TAB PO PRN (10:17)
[2020-09-11] MEDS ORDERED: ONDANSETRON 4 MG/2 ML VIAL IVP PRN (10:17)
[2020-09-11] MEDS ORDERED: HYDROcodone/APAP 5-325MG 1 EACH TAB PO PRN ×2 (10:17)
[2020-09-11] MEDS ORDERED: traMADol 50 MG TAB PO PRN (10:19)
--- NOTE | 2020-09-11 10:26 | P.OP ---
Date of Procedure: 09/11/20 Preoperative Diagnosis: Severe spinal stenosis L3 4 L4 5, neurogenic claudication, bilateral lower extremity radiculopathy, extremity weakness, facet arthrosis, low back pain Postoperative Diagnosis: Same Anesthesia: GETA Pathology: none sent Condition: stable Disposition: PACU Description of Procedure: DESCRIPTION OF PROCEDURE(S): BRIEF OPERATIVE NOTE Preoperative Diagnosis: Severe spinal stenosis L3 4 L4 5, neurogenic claudication, bilateral lower extremity radiculopathy, extremity weakness, facet arthrosis, low back pain Postoperative Diagnosis: Same Procedure: Laminectomy and decompression bilaterally L3 4 L4 5 Use of fluoroscopic guidance Surgeon: Dr. Barbosa Emergency Man: Bartolo THOMASON who is present throughout the entire the case persistence during positioning, dissection, exposure, visualization, and all crucial elements of the case as well as closure. Anesthesia: General anesthesia Estimated blood loss: Proximally 50 mL Complications: None apparent Components implanted: None Disposition: To recovery room in good stable condition. OPERATIVE INDICATIONS The patient has been having issues in their lower back and lower extremities. The patient was having evidence of neurogenic claudication and spinal stenosis along with issues with lower extremity radiculopathy. The patient was found to have significant spinal stenosis which was quite severe at L3 4 and L4 5 which correlated well with their low back and lower extremity symptoms. The patient has been through conservative treatment. With their imaging, and the level of their stenosis and their propensity for the possibility of recurrent stenosis I felt that decompression with intralaminar stabilization would be a good benefit for the patient. We also discussed the possibility of laminectomy decompression without stabilization. The patient's insurance company unfortunately denied placement of intralaminar stabilization and limited our options of treatment. We felt that the patient could still do well with laminectomy decompression alone at L3 4 and L4 5. We also discussed possibility of decompression with fusion consulted patient could do well with decompression alone at this point. We discussed various treatment options including surgery, and the patient wishes to proceed with surgery We discussed the risk, patient's alternatives and benefits of surgery including but not limited to, risk of bleeding risk of infection, risk of need for further surgery, risk of decreased, loss of motion, loss of function, nerve damage, paralysis, heart attack, blindness and . OPERATIVE SUMMARY After discussing all the risks, patient alternatives and benefits at length, the patient elected to proceed with surgical intervention, signed informed consent, and presented for their procedure. The patient was seen and examined in the preoperative holding area and the surgical site was marked. The patient was given antibiotics and brought to the operating room. The patient was sedated and intubated by anesthesia in standard fashion. The patient was positioned on to the operating room table in a prone position on the appropriate frame which was well-padded and well molded. We were careful to pad any bony prominences and pressure points. We were careful to maintain the patient's cervical spine and good neutral alignment and position throughout. The patient was prepped and draped in a normal standard fashion. An appropriate timeout and keystone protocol performed. We were able to proceed with the surgery. Fluoroscopy was utilized to establish the appropriate level. The local wound area was infiltrated with local anesthetic. An incision was made at the midline longitudinally over the appropriate levels. Dissection was taken down subcutaneously to the level of the fascia which was split midline. Dissection was taken over the lamina. Intraoperative fluoroscopy was taken which showed a marker at the appropriate level at L3 4. With the appropriate level positively confirmed, we were able to proceed with laminectomy. The wound was copiously irrigated and suctioned dry as had been done periodically throughout the case. I performed a laminectomy with a combination of curettes and a high-speed bur and Kerrison rongeurs. It was obvious that there is severe central and bilateral foraminal stenosis at L3 4 and L4 5 with severe thickening of the ligamentum flavum and significant arthrosis at the bilateral facets causing further foraminal stenosis. This was able to be remedied with the decompression. A small medial facetectomy was performed again further access. This was done bilaterally at that level. A partial foraminotomy was also performed. Portions of the ligamentum flavum were taken down to expose the dura and traversing nerve root. I was able to mobilize the traversing nerve root and gain access to the disc space. There is no evidence of disc extrusion. There is no evidence of dural tear or leak. Good hemostasis maintained. The wound was copiously irrigated and suctioned dry. Good decompression was noted centrally and at the bilateral neural foramen at L3 4 and L4 5. There is no evidence of any dural tear or leak. Good hemostasis was maintained. We were able to proceed with closure. The fascia was closed for a watertight closure. The subcuticular tissue was closed with absorbable suture. The wound was cleaned and dried and dressed with the appropriate dressing. The drapes were broken down. The patient was gently rolled back onto their hospital bed being careful to maintain their cervical spine and good neutral alignment and position. They were woken up by anesthesia, extubated, and brought to the recovery room in good stable condition. The patient will be admitted to the hospital for observation and for appropriate postoperative care, medical management and monitoring. We will continue to follow them closely about the postoperative course.
[2020-09-11] MEDS ORDERED: HYDROmorphone 1 MG/ML 1 ML SYRINGE IVP ONE ×7 (10:30→10:50)
[2020-09-11] MEDS: SODIUM CHLORIDE 0.9% 1,000 ML IV SCH (13:33)
[2020-09-11] MEDS: HYDROmorphone 0.5 MG/0.5 ML SYRINGE IVP PRN ×2 (16:25→21:17)
--- NOTE | 2020-09-11 19:56 | XR ---
EXAMINATION TYPE: XR lumbar spine 1V DATE OF EXAM: 09/11/2020 COMPARISON: NONE HISTORY: Laminectomy TECHNIQUE: Single fluoroscopic images. One second of fluoroscopy time. FINDINGS: A single lateral view shows the probe with the tip over the spinous process of L4 vertebra.
[2020-09-11] MEDS ORDERED: CYCLOBENZAPRINE 10 MG TAB PO SCH (21:00)
[2020-09-12] MEDS: SODIUM CHLORIDE 0.9% 1,000 ML IV SCH (00:30)
[2020-09-12 04:41] VITALS: BP 117/77; PULSE 104; RESP 16; TEMP 98.6
--- NOTE | 2020-09-12 08:21 | P.CONS ---
History of Present Illness - Chief Complaint Back pain - History of Present Illness This is a history and physical on a 59-year-old white male essentially admitted for lumbar spinal stenosis. The patient is seen postop day 1 doing well. No new complaints are stated. Pain is nominal. No significant fever or chills stated. No voiding difficulties. No saddle numbness. Patient is moving his lower extremities appropriate Review of Systems Constitutional: Denies chills, Denies fever Ears, nose, mouth and throat: Denies headache, Denies sore throat Cardiovascular: Denies chest pain, Denies shortness of breath Respiratory: Denies cough Gastrointestinal: Denies abdominal pain, Denies diarrhea, Denies nausea, Denies vomiting Past Medical History Past Medical History: Hyperlipidemia, Hypertension, Osteoarthritis (OA) Additional Past Medical History / Comment(s): RLS. DDD History of Any Multi-Drug Resistant Organisms: None Reported Past Surgical History: Hernia Repair, Orthopedic Surgery Additional Past Surgical History / Comment(s): right knee, hiatal hernia repair Past Psychological History: No Psychological Hx Reported Smoking Status: Former smoker Past Alcohol Use History: Occasional Additional Past Alcohol Use History / Comment(s): smoked 10 years quit 1992 Past Drug Use History: None Reported - Past Family History Mother Family Medical History: No Reported History Medications and Allergies Home Medications Medication Instructions Recorded Confirmed Type Atorvastatin [Lipitor] 20 mg PO DAILY 06/23/17 09/11/20 History Cyclobenzaprine [Flexeril] 10 mg PO HS 09/06/20 09/11/20 History Ibuprofen [Motrin] 800 mg PO BID 09/06/20 09/11/20 History Lisinopril-Hctz 20-25 mg 1 tab PO DAILY 09/06/20 09/11/20 History [Zestoretic 20-25] Propranolol LA [Inderal LA] 60 mg PO DAILY 09/06/20 09/11/20 History amLODIPine [Norvasc] 10 mg PO DAILY 09/06/20 09/11/20 History rOPINIRole HCL [Requip] 0.25 mg PO HS 09/06/20 09/11/20 History traMADol HCL [Ultram] 100 mg PO 1800 09/06/20 09/11/20 History HYDROcodone/APAP 5-325MG [[place] 5] 1 each PO Q6HR PRN #28 tab 09/11/20 Rx Allergies Allergy/AdvReac Type Severity Reaction Status Date / Time No Known Allergies Allergy Verified 09/11/20 07:34 Physical Exam Vitals: Vital Signs Temp Pulse Pulse Resp BP Pulse Ox 09/12/20 04:39 98.6 F 104 H 16 117/77 97 09/11/20 22:52 98.4 F 99 17 109/73 98 09/11/20 20:00 16 09/11/20 14:01 69 16 104/59 09/11/20 11:00 69 16 100/52 93 L 09/11/20 10:45 69 14 93/51 96 09/11/20 10:30 78 14 124/75 98 09/11/20 10:21 98.1 F 80 15 122/74 99 Intake and Output 09/11/20 09/12/20 09/12/20 22:59 06:59 14:59 Intake Total 346 1000 Output Total 1500 1300 Balance -1154 -300 Intake: IV 6 Invasive Line 1 6 Intake, IV Titration 100 1000 Amount Sodium Chloride 0.9% 1, 900 000 ml @ 75 mls/hr IV . [id number] [facility] Rx#:[id number] ceFAZolin 2 gm In Sodium 100 100 Chloride 0.9% 50 ml @ 100 mls/hr IVPB Q8HR [facility] Rx# :[id number] Oral 240 Output: Urine 1500 1300 Other: Voiding Method Urinal # Voids 3 - Constitutional General appearance: no acute distress - EENT Eyes: EOMI - Neck Neck: no lymphadenopathy - Respiratory Respiratory: bilateral: CTA - Cardiovascular Rhythm: regular Heart sounds: normal: S1, S2 Abnormal Heart Sounds: no S3 Gallop - Gastrointestinal General gastrointestinal: no tenderness, no umbilical hernia - Integumentary Integumentary: no cellulitis Assessment and Plan (1) Spinal stenosis Current Visit: Yes Status: Acute Code(s): M48.00 - SPINAL STENOSIS, SITE UNSPECIFIED SNOMED Code(s): 65742355 (2) DDD (degenerative disc disease), lumbar Current Visit: Yes Status: Acute Code(s): M51.36 - OTHER INTERVERTEBRAL DISC DEGENERATION, LUMBAR REGION SNOMED Code(s): 07616039 (3) Hypertension Current Visit: Yes Status: Acute Code(s): I10 - ESSENTIAL (PRIMARY) HYPERTENSION SNOMED Code(s): 96590176
--- NOTE | 2020-09-12 08:40 | P.DS ---
Providers Date of admission: 09/11/20 22:35 Attending physician: Derek Barbosa Primary care physician: Jm Lafleur [facility] Course: The patient presented on the day of admission as per their operative note. He had severe spinal stenosis L3 4 and L4 5 and underwent laminectomy decompression L3 4 L4 5 for his severe spinal stenosis with neurogenic claudication lower extremity collapsing weakness. He did well overnight and has been making good progress. He feels his legs are doing better already. He has some pain in his back but it is manageable for him. Physical Exam The incision site is clean dry and intact. There is no erythema no drainage. There is no purulence no evidence of infection. There is some swelling in his lower back but there is no drainage. Abdomen soft and nontender. Chest has good excursion with deep inspiration and expiration. The patient has active and passive range of motion intact at the upper and lower extremities. There is no acute change in neurologic status. He has sustained dorsiflexion plantar flexion and EHL intact. Hospital Course Postoperative day #1 status post laminectomy decompression L3 4 L4 5 for his severe spinal stenosis with neurogenic claudication lower extremity radiculopathy and weakness. Patient is doing very well thus far and is improving in his lower extremities. The patient has been making good progress postoperatively. They have completed the prophylactic antibiotics without any signs or symptoms of infection. The patient has been able to advance their diet, and is tolerating diet adequately. The pain was initially controlled with IV medications and is now controlled appropriately with oral medications. The patient has been able to increase their mobilization. The patient has progressed appropriately. I think they are in good stable condition for discharge today. They will be sent home with appropriate prescriptions. I answered their questions to the best of my ability in a language that they can understand and they are agreeable with the plan. They will follow up as directed in approximately 2 weeks or sooner if he is having any problems. Patient Condition at Discharge: Good Plan - Discharge Summary Discharge Rx Participant: No New Discharge Prescriptions: New HYDROcodone/APAP 5-325MG [[place] 5] 1 each PO Q6HR PRN #28 tab PRN Reason: Pain No Action Atorvastatin [Lipitor] 20 mg PO DAILY rOPINIRole HCL [Requip] 0.25 mg PO HS amLODIPine [Norvasc] 10 mg PO DAILY Cyclobenzaprine [Flexeril] 10 mg PO HS Propranolol LA [Inderal LA] 60 mg PO DAILY traMADol HCL [Ultram] 100 mg PO 1800 Lisinopril-Hctz 20-25 mg [Zestoretic 20-25] 1 tab PO DAILY Ibuprofen [Motrin] 800 mg PO BID Discharge Medication List Atorvastatin [Lipitor] 20 mg PO DAILY 06/23/17 [History] Cyclobenzaprine [Flexeril] 10 mg PO HS 09/06/20 [History] Ibuprofen [Motrin] 800 mg PO BID 09/06/20 [History] Lisinopril-Hctz 20-25 mg [Zestoretic 20-25] 1 tab PO DAILY 09/06/20 [History] Propranolol LA [Inderal LA] 60 mg PO DAILY 09/06/20 [History] amLODIPine [Norvasc] 10 mg PO DAILY 09/06/20 [History] rOPINIRole HCL [Requip] 0.25 mg PO HS 09/06/20 [History] traMADol HCL [Ultram] 100 mg PO 1800 09/06/20 [History] HYDROcodone/APAP 5-325MG [[place] 5] 1 each PO Q6HR PRN #28 tab 09/11/20 [Rx] Follow up Appointment(s)/Referral(s): Derek Barbosa DO [Doctor of Osteopathic Medicine] - 2 Weeks Activity/Diet/Wound Care/Special Instructions: Keep site clean. May shower with waterproof Tegaderm intact. Do not soak in a tub. After 72 hours postoperatively, patient May remove dressing and then may shower with area uncovered. Leave Steri-Strips intact and allow them to fray off on their own. May ambulate as tolerated. Avoid heavy or rigorous activity. No repetitive bending twisting or lifting. No overhead work. Discharge Disposition: HOME SELF-CARE
[2020-09-12] MEDS ORDERED: amLODIPine 10 MG TAB PO SCH (09:00)
[2020-09-12] MEDS ORDERED: ATORVASTATIN 20 MG TAB PO SCH (09:00)
[2020-09-12] MEDS ORDERED: PROPRANOLOL LA 60 MG CAP.SA.24H PO SCH (09:00)
[2020-09-12] MEDS ORDERED: SENNOSIDES-DOCUSATE SODIUM 1 EACH TAB PO SCH (09:00)
[2020-09-12] MEDS ORDERED: LISINOPRIL-HCTZ 20-25 MG 1 EACH TAB PO SCH (09:00)
== END 2020-09-12 11:15 | disposition home or self-care (01) ==
LOC: OR 07:08 → 5NMEDONC 10:21 → OR 22:35 → 5NMEDONC 22:35
PROVIDERS: ADMIT Orthopaedic Surgery Orthopaedic Surgery of the Spine; ATTEND Orthopaedic Surgery Orthopaedic Surgery of the Spine
DX: M48.062 Spinal stenosis, lumbar region with neurogenic claudication (principal); M47.26 Other spondylosis with radiculopathy, lumbar region; M51.16 Intervertebral disc disorders with radiculopathy, lumbar region; I11.0 Hypertensive heart disease with heart failure; E78.2 Mixed hyperlipidemia; I71.2 Thoracic aortic aneurysm, without rupture; I49.49 Other premature depolarization; I50.9 Heart failure, unspecified; M54.6 Pain in thoracic spine; M79.18 Myalgia, other site; M41.86 Other forms of scoliosis, lumbar region; E66.9 Obesity, unspecified; G25.81 Restless legs syndrome; Z79.899 Other long term (current) drug therapy; Z79.1 Long term (current) use of non-steroidal anti-inflammatories (NSAID); Z79.891 Long term (current) use of opiate analgesic; Z97.3 Presence of spectacles and contact lenses; Z98.890 Other specified postprocedural states; Z87.891 Personal history of nicotine dependence; Z68.32 Body mass index [BMI] 32.0-32.9, adult; Z83.3 Family history of diabetes mellitus; Z82.49 Family history of ischemic heart disease and other diseases of the circulatory system
CPT/HCPCS: 94760; 97162; 72020; 63030; 63035 ×2; G0378 ×2; J2250; J1030; J2710; J0690 ×3; J2405; J2001; J3010; J1170 ×2; J2370; J0330; J2704; 86850; 86900; 86901

== ENCOUNTER → 2020-12-12 | Outpatient (CLI) | payer BC ==
--- NOTE | 2020-12-12 11:52 | MR ---
EXAMINATION TYPE: MR cervical spine wo con DATE OF EXAM: 12/12/2020 COMPARISON: None HISTORY: M 54.12 TECHNIQUE: Multiplanar, multisequence images of the cervical spine were acquired. C2-C3: No evidence for degenerative disc disease. No disc bulge/herniation or protrusion. No Canal stenosis. Foramina are patent bilaterally. C3-C4: Uncovertebral joint hypertrophy and facet arthropathy causes some foraminal encroachment on th e right greater than left, posterior extension endplate disc complex causes mild anterior mass effect on the thecal sac, no significant spinal stenosis. C4-C5: Posterior disc bulge causes mild anterior mass effect on the thecal sac. No significant spinal stenosis. No significant foraminal encroachment is present C5-C6: Posterior extension endplate disc complex causes mild anterior mass effect on the thecal sac, no significant central stenosis. There is bilateral foraminal encroachment due to uncovertebral joint hypertrophy. C6-C7: Posterior extension endplate disc complex causes mild anterior mass effect on the thecal sac. There is foraminal encroachment on the left. C7-T1: No evidence for degenerative disc disease. No disc bulge/herniation or protrusion. No Canal stenosis. Foramina are patent bilaterally. Cervical segments are intact. There is normal alignment. Cervical spinal cord is of normal signal. Craniovertebral junction relationships are within normal limits. There is multilevel spondylosis. S ome endplate discogenic marrow signal changes present, loss of disc height signal is greatest at C3-4 , C5-6 and C6-7. IMPRESSION: Disc disease, multilevel foraminal encroachment, no significant spinal stenosis.
== END | disposition home or self-care (01) ==
LOC: RADMRIMAIN 08:35
PROVIDERS: ATTEND Psychiatry & Neurology Neurology
DX: M50.121 Cervical disc disorder at C4-C5 level with radiculopathy (principal); M99.71 Connective tissue and disc stenosis of intervertebral foramina of cervical region; M47.22 Other spondylosis with radiculopathy, cervical region
CPT/HCPCS: 72141

== ENCOUNTER 2022-12-22 16:25 | Observation (INO) | payer OTHER ==
--- NOTE | 2022-12-22 18:49 | ED ---
General Adult HPI - General Source: patient, RN notes reviewed Mode of arrival: ambulatory Limitations: no limitations <Arti Lopez - Last Filed: 12/22/22 18:48> <Abril Peterson - Last Filed: 12/23/22 04:06> - General Chief complaint: Chest Pain Stated complaint: Chest pain Time Seen by Provider: 12/22/22 18:48 - History of Present Illness Initial comments: 61-year-old male with past medical history significant for hypertension presents to the emergency department with a chief complaint of c hest pain. Patient reports chest pain started at 4 PM. He reports it as sharp that has now describes as a dull ache. Denies shortness of breath. (Arti Lopez) HPI as above reviewed. Patient continues to have a dull midsternal complaint of chest pain that is not reducible. He is to identify any aggravating or alleviating factors. He denies any associated symptoms including any shortness of breath, orthopnea, abdominal pain, nausea, vomiting, diaphoresis, headache, dizziness, fevers or chills. He is being followed by cardiology for an aortic aneurysm however he is unsure of his thoracic or abdominal or its size unfortunately records are not available at this facility regarding his aneurysm. He is being treated for hypertension and hyperlipidemia by his primary care provider. In addition to his hypertension hyperlipidemia and aortic aneurysm he has a past medical history significant for restless leg syndrome and degenerative disc disease. (Abril Peterson) - Related Data Home Medications Medication Instructions Recorded Confirmed Atorvastatin [Lipitor] 20 mg PO DAILY 06/23/17 09/11/20 Cyclobenzaprine [Flexeril] 10 mg PO HS 09/06/20 09/11/20 Ibuprofen [Motrin] 800 mg PO BID 09/06/20 09/11/20 Lisinopril-Hctz 20-25 mg 1 tab PO DAILY 09/06/20 09/11/20 [Zestoretic 20-25] Propranolol LA [Inderal LA] 60 mg PO DAILY 09/06/20 09/11/20 amLODIPine [Norvasc] 10 mg PO DAILY 09/06/20 09/11/20 rOPINIRole HCL [Requip] 0.25 mg PO HS 09/06/20 09/11/20 traMADol HCL [Ultram] 100 mg PO 1800 09/06/20 09/11/20 Previous Rx's Medication Instructions Recorded HYDROcodone/APAP 5-325MG [[place] 5] 1 each PO Q6HR PRN #28 tab 09/11/20 Allergies Allergy/AdvReac Type Severity Reaction Status Date / Time No Known Allergies Allergy Verified 09/11/20 07:34 Review of Systems ROS Other: All systems not noted in ROS Statement are negative. <Arti Lopez - Last Filed: 12/22/22 18:48> ROS Other: All systems not noted in ROS Statement are negative. <Abril Peterson - Last Filed: 12/23/22 04:06> ROS Statement: Those systems with pertinent positive or pertinent negative responses have been documented in the HPI. Past Medical History Past Medical History: Hypertension Additional Past Medical History / Comment(s): RLS. DDD History of Any Multi-Drug Resistant Organisms: None Reported Past Surgical History: Hernia Repair, Orthopedic Surgery Additional Past Surgical History / Comment(s): right knee Past Psychological History: No Psychological Hx Reported Smoking Status: Former smoker Past Alcohol Use History: None Reported Past Drug Use History: None Reported - Past Family History Mother Family Medical History: No Reported History <Arti Lopez - Last Filed: 12/22/22 18:48> Past Medical History: Hyperlipidemia, Hypertension <Abril Peterson - Last Filed: 12/23/22 04:06> General Exam Limitations: no limitations <Arti Lopez - Last Filed: 12/22/22 18:48> <Abril Peterson - Last Filed: 12/23/22 04:06> - General Exam Comments Initial Comments: Visual Physical Exam Vital signs reviewed General: Well-appearing, nontoxic, no acute distress. Head: Normocephalic, atraumatic Eyes: PERRLA, EOMI ENT: Airway patent Chest: Nonlabored breathing Skin: No visual rash, normal skin tone Neuro: Alert and oriented 3 Musculoskeletal: No gross abnormalities (Arti Lopez) GENERAL: No acute distress, well developed, well nourished. HEENT: Normocephalic, atraumatic. Pupils equal, round, reactive to light. Moist mucous membranes. LUNGS: No respiratory distress. Clear to auscultation, no adventitious sounds, no use of accessory muscles. HEART: Regular rate and rhythm without murmur, rub, or gallop. ABDOMEN: Normal bowel sounds. Soft, non-tender, non-distended. Rounded. BACK: Normal inspection. EXTREMITIES: No edema. No tenderness. Moves all extremities. NEUROLOGIC: Alert & oriented x 3. CN II-XII grossly intact. PSYCHIATRIC: Normal affect and behavior. DERMATOLOGIC: Skin intact, without rashes or lesions noted. (Abril Peterson) Course Vital Signs 12/22/22 12/23/22 12/23/22 23:38 01:40 03:08 Pulse Rate 117 H 116 H 112 H Respiratory 18 18 Rate Blood Pressure 131/95 126/86 113/82 O2 Sat by Pulse 98 96 97 Oximetry Medical Decision Making - Lab Data Result diagrams: 12/22/22 20:06 12/22/22 20:06 - Radiology Data Radiology results: report reviewed, image reviewed <Abril Peterson - Last Filed: 12/23/22 04:06> - Medical Decision Making Was pt. sent in by a medical professional or institution (, PA, NAIL TECH, urgent care, hospital, or senior care...) When possible be specific @ -No Did you speak to anyone other than the patient for history (EMS, parent, family, police, friend...)? What history was obtained from this source @ -No Did you review nursing and triage notes (agree or disagree)? Why? @ -I reviewed and agree with nursing and triage notes Were old charts reviewed (outside hosp., previous admission, EMS record, old EKG, old radiological studies, urgent care reports/EKG's, senior care records)? Report findings @ -Yes, reviewed last EKG on file which was from 2016. Differential Diagnosis (chest pain, altered mental status, abdominal pain women, abdominal pain men, vaginal bleeding, weakness, fever, dyspnea, syncope, headache, dizziness, GI bleed, back pain, seizure, CVA, palpatations, mental health, musculoskeletal)? @ -Differential Chest Pain: Stable Angina, Unstable Angina, STEMI, NSTEMI Aortic Dissection, Pneumothorax, Musculoskeletal, Esophageal Spasm GERD, Cholecystitis, Pancreatitis, Zoster, this is not meant to be an all-inclusive list. EKG interpreted by me (3pts min.). @ -Sinus tachycardia ventricular rate 112 bpm, AR interval 184 ms, QRS duration 80 ms, QT/QTC 295/362 ms, PRT axes 13, 26, 23 X-rays interpreted by me (1pt min.). @ -Chest x-ray two-view: No acute cardio pulmonary process. No consolidation, infiltrate or pneumothorax. CT interpreted by me (1pt min.). @ -CT angiogram aorta: No pulmonary emboli, aortic aneurysm or acute cardi opulmonary process identified. U/S interpreted by me (1pt. min.). @ -None done What testing was considered but not performed or refused? (CT, X-rays, U/S, labs)? Why? @ -None What meds were considered but not given or refused? Why? @ -None Did you discuss the management of the patient with other professionals (professionals i.e. , PA, NAIL TECH, lab, RT, psych nurse, manager social media, lay ups assembler, teacher, licensed loan officer assistant, pillowcase cutter)? Give summary @ -No Was smoking cessation discussed for >3mins.? @ -No Was critical care preformed (if so, how long)? @ -No Were there social determinants of health that impacted care today? How? (Homelessness, low income, unemployed, alcoholism, drug addiction, transportation, low edu. Level, literacy, decrease access to med. care, usp, rehab)? @ -No Was there de-escalation of care discussed even if they declined (Discuss DNR or withdrawal of care, Hospice)? DNR status @ -No What co-morbidities impacted this encounter? (DM, HTN, Smoking, COPD, CAD, Cancer, CVA, ARF, Chemo, Hep., AIDS, mental health diagnosis, sleep apnea, morbid obesity)? @ -Hypertension, hyperlipidemia, history of aortic aneurysm Was patient admitted / discharged? Hospital course, mention meds given and route, prescriptions, significant lab abnormalities, going to OR and other pertinent info. @ -61-year-old male presenting to the emergency room with complaints of substernal chest pain that began as sharp and now persists as a dull pain with without any associated symptoms with known cardiovascular risk factors of hypertension, hyperlipidemia and obesity. He is on blood pressure and cholesterol medication. He also advised that he is following with cardiology in regards to an aortic aneurysm that was an incidental finding several years ago. Triage and provider ordered EKG, chest x-ray and laboratory studies of CBC, coags, CMP, magnesium and troponin. Chest x-ray demonstrates no acute cardio pulmonary process. CBC is unremarkable, coags are normal. CMP demonstrates dehydration with a BUN of 27, creatinine 1.33 chloride low 96, sodium low 134. Magnesium and potassium levels normal. Liver enzymes and alkaline phosphatase normal. Troponin negative. EKG shows sinus tachycardia. Due due to now known past medical history of aortic aneurysm will obtain CT angiogram and initiate 1 L fluid bolus for dehydration. No indication for aspirin or nitroglycerin and restriction at this time. Advised patient that due to risk factors recommend observation admission for further evaluation and monitoring of symptoms. Patient is agreeable to admission for further observation of chest pain. Per on-call provider for E will place admission orders and notified of admission and morning. We will also place consult to cardiology and repeat laboratory studies. Computed tomography scan negative for acute cardiopulmonary process including PE or aneurysm. Will admit patient in stable condition to observation unit under EM for further evaluation and treatment of chest pain. Undiagnosed new problem with uncertain prognosis? @ -No Drug Therapy requiring intensive monitoring for toxicity (Heparin, Nitro, Insulin, Cardizem)? @ -No Were any procedures done? @ -No Diagnosis/symptom? @ -Chest pain Acute, or Chronic, or Acute on Chronic? @ -Acute Uncomplicated (without systemic symptoms) or Complicated (systemic symptoms)? @ -Complicated Side effects of treatment? @ -No Exacerbation, Progression, or Severe Exacerbation? @ -No Poses a threat to life or bodily function? How? (Chest pain, [place], [place], pneumonia, PE, COPD, DKA, ARF, appy, cholecystitis, CVA, Diverticulitis, Homicidal, Suicidal, threat to staff... and all critical care pts) @ -Yes, chest pain at high risk for ACS, arrhythmia and cardiac arrest. Case discussed with Dr. Barragan. (KinderhookAbril) - Lab Data Lab Results 12/22/22 12/22/22 12/22/22 Range/Units 20:06 20:06 20:06 WBC (3.8-10.6) k/uL RBC (4.30-5.90) m/uL Hgb (13.0-17.5) gm/dL Hct (39.0-53.0) % MCV (80.0-100.0) fL MCH (25.0-35.0) pg MCHC (31.0-37.0) g/dL RDW (11.5-15.5) % Plt Count (150-450) k/uL MPV Neutrophils % % Lymphocytes % % Monocytes % % Eosinophils % % Basophils % % Neutrophils # (1.3-7.7) k/uL Lymphocytes # (1.0-4.8) k/uL Monocytes # (0-1.0) k/uL Eosinophils # (0-0.7) k/uL Basophils # (0-0.2) k/uL PT 10.1 (9.0-12.0) sec INR 0.9 (<1.2) APTT 23.5 (22.0-30.0) sec Sodium 134 L (137-145) mmol/L Potassium 4.6 (3.5-5.1) mmol/L Chloride 96 L (98-107) mmol/L Carbon Dioxide 30 (22-30) mmol/L Anion Gap 8 mmol/L BUN 27 H (9-20) mg/dL Creatinine 1.33 H (0.66-1.25) mg/dL Est GFR (CKD-EPI)AfAm 66 (>60 ml/min/1.73 sqM) Est GFR (CKD-EPI)NonAf 57 (>60 ml/min/1.73 sqM) Glucose 95 (74-99) mg/dL Calcium 9.8 (8.4-10.2) mg/dL Magnesium 2.2 (1.6-2.3) mg/dL Total Bilirubin 0.8 (0.2-1.3) mg/dL AST 23 (17-59) U/L ALT 24 (4-49) U/L Alkaline Phosphatase 96 (38-126) U/L Troponin I <0.012 (0.000-0.034) ng/mL Total Protein 7.3 (6.3-8.2) g/dL Albumin 4.5 (3.5-5.0) g/dL 12/22/22 Range/Units 20:06 WBC 9.7 (3.8-10.6) k/uL RBC 5.07 (4.30-5.90) m/uL Hgb 15.9 (13.0-17.5) gm/dL Hct 47.0 (39.0-53.0) % MCV 92.6 (80.0-100.0) fL MCH 31.3 (25.0-35.0) pg MCHC 33.8 (31.0-37.0) g/dL RDW 13.1 (11.5-15.5) % Plt Count 328 (150-450) k/uL MPV 7.6 Neutrophils % 68 % Lymphocytes % 17 % Monocytes % 9 % Eosinophils % 4 % Basophils % 1 % Neutrophils # 6.6 (1.3-7.7) k/uL Lymphocytes # 1.6 (1.0-4.8) k/uL Monocytes # 0.9 (0-1.0) k/uL Eosinophils # 0.4 (0-0.7) k/uL Basophils # 0.1 (0-0.2) k/uL PT (9.0-12.0) sec INR (<1.2) APTT (22.0-30.0) sec Sodium (137-145) mmol/L Potassium (3.5-5.1) mmol/L Chloride (98-107) mmol/L Carbon Dioxide (22-30) mmol/L Anion Gap mmol/L BUN (9-20) mg/dL Creatinine (0.66-1.25) mg/dL Est GFR (CKD-EPI)AfAm (>60 ml/min/1.73 sqM) Est GFR (CKD-EPI)NonAf (>60 ml/min/1.73 sqM) Glucose (74-99) mg/dL Calcium (8.4-10.2) mg/dL Magnesium (1.6-2.3) mg/dL Total Bilirubin (0.2-1.3) mg/dL AST (17-59) U/L ALT (4-49) U/L Alkaline Phosphatase (38-126) U/L Troponin I (0.000-0.034) ng/mL Total Protein (6.3-8.2) g/dL Albumin (3.5-5.0) g/dL Disposition <Arti Lopez - Last Filed: 12/22/22 18:48> Is patient prescribed a controlled substance at d/c from ED?: No Time of Disposition: 04:06 <Abril Peterson - Last Filed: 12/23/22 04:06> Clinical Impression: Chest pain Disposition: ADMITTED IP TO THIS HOSP Condition: Stable Referrals: Jagruti Burton MD [Primary Care Provider] - 1-2 days
--- NOTE | 2022-12-22 20:17 | XR ---
EXAMINATION TYPE: XR chest 2V DATE OF EXAM: 12/22/2022 COMPARISON: 03/17/2022 INDICATION: Chest pain TECHNIQUE: Frontal and lateral views of the chest are obtained. FINDINGS: The heart size is normal. The pulmonary vasculature is normal. The lungs are clear. IMPRESSION: 1. No acute pulmonary process.
[2022-12-22 20:26] LABS: Basophils # (A) 0.1 k/uL (0-0.2); Basophils % (A) 1 %; Eosinophils # (A) 0.4 k/uL (0-0.7); Eosinophils % (A) 4 %; HGB 15.9 gm/dL (13.0-17.5); Lymphocytes # (A) 1.6 k/uL (1.0-4.8); Lymphocytes % (A) 17 %; MCH 31.3 pg (25.0-35.0); MCHC 33.8 g/dL (31.0-37.0); MCV 92.6 fL (80.0-100.0); Mean Platelet Volume 7.6; Monocytes # (A) 0.9 k/uL (0-1.0); Monocytes % (A) 9 %; Neutrophils # (A) 6.6 k/uL (1.3-7.7); Neutrophils % (A) 68 %; Platelet Count 328 k/uL (150-450); RBC 5.07 m/uL (4.30-5.90); RDW 13.1 % (11.5-15.5); WBC 9.7 k/uL (3.8-10.6)
[2022-12-22 20:39] LABS: Albumin 4.5 g/dL (3.5-5.0); Calcium 9.8 mg/dL (8.4-10.2); INR 0.9 (<1.2); Magnesium 2.2 mg/dL (1.6-2.3); Partial Thromboplastin Time 23.5 sec (22.0-30.0); Potassium 4.6 mmol/L (3.5-5.1); Prothrombin Time 10.1 sec (9.0-12.0); Total Bilirubin 0.8 mg/dL (0.2-1.3); Total Protein 7.3 g/dL (6.3-8.2)
[2022-12-23] MEDS ORDERED: SODIUM CHLORIDE 0.9% 1,000 ML IV STA (02:02)
--- NOTE | 2022-12-23 03:48 | CT ---
EXAM: CT Angiography Chest With Intravenous Contrast CLINICAL HISTORY: Chest pain, h/o aortic aneurysm TECHNIQUE: Axial computed tomographic angiography images of the chest with intravenous contrast. CTDI is 16.9 mGy and DLP is 990 mGy-cm. This CT exam was performed using one or more of the following dose reduction techniques: automated exposure control, adjustment of the mA and/or kV according to patient size, and/or use of iterative reconstruction technique. MIP reconstructed images were created and reviewed. Coronal and sagittal reformatted images were created and reviewed. COMPARISON: No relevant prior studies available. FINDINGS: Pulmonary arteries: Unremarkable. No pulmonary embolism. Aorta: No acute findings. No thoracic aortic aneurysm. Lungs: Elevated left hemidiaphragm with compressive atelectasis. No mass. Pleural space: Unremarkable. No significant effusion. No pneumothorax. Heart: Unremarkable. No cardiomegaly. No significant pericardial effusion. No evidence of RV dysfunction. Bones/joints: Osteopenia suspected. Mild upper lumbar thoracic scoliosis convexed to the right. Soft tissues: Unremarkable. Lymph nodes: Unremarkable. No enlarged lymph nodes. IMPRESSION: No acute findings in the visualized arteries of the chest. EXAM: CT Angiography Abdomen and Pelvis With Intravenous Contrast CLINICAL HISTORY: Chest pain, h/o aortic aneurysm TECHNIQUE: Axial computed tomographic angiography images of the abdomen and pelvis with intravenous contrast. CTDI is 9.4 mGy and DLP is 724.3 mGy-cm. This CT exam was performed using one or more of the following dose reduction techniques: automated exposure control, adjustment of the mA and/or kV according to patient size, and/or use of iterative reconstruction technique. MIP reconstructed images were created and reviewed. Coronal and sagittal reformatted images were created and reviewed. COMPARISON: No relevant prior studies available. FINDINGS: VASCULATURE: Aorta: No acute findings. No abdominal aortic aneurysm. No dissection. Celiac trunk and mesenteric arteries: No acute findings. No occlusion or significant stenosis. Renal arteries: No acute findings. No occlusion or significant stenosis. Iliac arteries: No acute findings. No occlusion or significant stenosis. Lung bases: Unremarkable. No mass. No consolidation. ABDOMEN: Liver: Unremarkable. No mass. Gallbladder and bile ducts: Unremarkable. No calcified stones. No ductal dilation. Pancreas: Unremarkable. No ductal dilation. No mass. Spleen: Unremarkable. No splenomegaly. Adrenals: Unremarkable. No mass. Kidneys and ureters: 2 mm nonobstructing midpole right renal stone. Stomach and bowel: 2 adjacent diverticula in third portion of duodenum. No obstruction. No mucosal thickening. PELVIS: Appendix: Appendix is dilated to 9 mm, without surrounding mesenteric inflammation, likely patient's baseline. Bladder: Unremarkable. No mass. Reproductive: Unremarkable as visualized. ABDOMEN and PELVIS: Intraperitoneal space: Unremarkable. No significant fluid collection. No free air. Bones/joints: Osteopenia. Moderate degenerative changes. 4 mm retrolisthesis of L1 on L2 and L2 on L3. Mild upper thoracic scoliosis convexed to the right. Mild lower lumbar spinal scoliosis convexed to the left. Soft tissues: Unremarkable. Lymph nodes: Unremarkable. No enlarged lymph nodes. IMPRESSION: No acute findings in the arteries of the abdomen and pelvis.
[2022-12-23] MEDS ORDERED: NALOXONE 0.4 MG/ML 1 ML VIAL IV PRN (04:05)
[2022-12-23] MEDS ORDERED: traMADol 50 MG TAB PO PRN ×2 (04:05→11:51)
[2022-12-23] MEDS ORDERED: ACETAMINOPHEN TAB 325 MG TAB PO PRN (04:05)
[2022-12-23] MEDS ORDERED: MELOXICAM 7.5 MG TAB PO PRN (11:51)
--- NOTE | 2022-12-23 12:58 | P.HPIM ---
History of Present Illness 60-year-old pleasant male came in with complaints of retrosternal sharp and dull chest pain which is not reproducible without any identifiable aggravating or relieving factors nonpruritic in nature not associated with food denied any association shortness of breath or orthopnea denied any association with nausea vomiting diaphoresis lightheadedness, episodic lasting for few minutes. Patient currently has sinus tachycardia patient had history of frequent PVCs because of which patient is on propranolol sustained release every day in the morning which he didn't receive today. REVIEW OF SYSTEMS: CONSTITUTIONAL: No fever, no malaise, no fatigue. HEENT: No recent visual problems or hearing problems. Denied any sore throat. CARDIOVASCULAR: No orthopnea, PND, no palpitations, no syncope. PULMONARY: No shortness of breath, no cough, no hemoptysis. GASTROINTESTINAL: No diarrhea, no nausea, no vomiting, no abdominal pain. NEUROLOGICAL: No headaches, no weakness, no numbness. HEMATOLOGICAL: Denies any bleeding or petechiae. GENITOURINARY: Denies any burning micturition, frequency, or urgency. MUSCULOSKELETAL/RHEUMATOLOGICAL: Denies any joint pain, swelling, or any muscle pain. ENDOCRINE: Denies any polyuria or polydipsia. The rest of the 14-point review of systems is negative. PHYSICAL EXAMINATION: GENERAL: The patient is alert and oriented x3, not in any acute distress. Well developed, well nourished. HEENT: Pupils are round and equally reacting to light. EOMI. No scleral icterus. No conjunctival pallor. Normocephalic, atraumatic. No pharyngeal erythema. No thyromegaly. CARDIOVASCULAR: S1 and S2 present. No murmurs, rubs, or gallops. Irregular tachycardic PULMONARY: Chest is clear to auscultation, no wheezing or crackles. ABDOMEN: Soft, nontender, nondistended, normoactive bowel sounds. No palpable organomegaly. MUSCULOSKELETAL: No joint swelling or deformity. EXTREMITIES: No cyanosis, clubbing, or pedal edema. NEUROLOGICAL: Gross neurological examination did not reveal any focal deficits. SKIN: No rashes. Assessment and plan -Chest pain atypical cardiology will evaluate the patient ruled out acute coronary syndromes with 3 sets of troponin CK did not show any acute ST-T wave changes. Hypovolemic hyponatremia secondary to thiazide which will be held -Mild acute renal failure secondary to hydrochlorothiazide which will help -Sinus tachycardia with frequent PVCs reflux tachycardia from not taking his beta pacheco today which will be resumed -Hyperlipidemia -Hypertension DVT prophylaxis: Lovenox Past Medical History Past Medical History: Hyperlipidemia, Hypertension Additional Past Medical History / Comment(s): RLS. DDD History of Any Multi-Drug Resistant Organisms: None Reported Past Surgical History: Hernia Repair, Orthopedic Surgery Additional Past Surgical History / Comment(s): right knee Past Psychological History: No Psychological Hx Reported Smoking Status: Former smoker Past Alcohol Use History: None Reported Additional Past Alcohol Use History / Comment(s): smoked 10 years quit 1992 Past Drug Use History: None Reported - Past Family History Mother Family Medical History: No Reported History Medications and Allergies Home Medications Medication Instructions Recorded Confirmed Type Atorvastatin [Lipitor] 20 mg PO DAILY 06/23/17 12/23/22 History Cyclobenzaprine [Flexeril] 10 mg PO TID PRN 09/06/20 12/23/22 History Lisinopril-Hctz 20-25 mg 1 tab PO DAILY 09/06/20 12/23/22 History [Zestoretic 20-25] Propranolol LA [Inderal LA] 60 mg PO DAILY 09/06/20 12/23/22 History rOPINIRole HCL [Requip] 0.25 mg PO HS 09/06/20 12/23/22 History traMADol HCL [Ultram] 100 mg PO QID PRN 09/06/20 12/23/22 History Budesonide/Formoterol Fumarate 2 puff INHALATION RT-BID 12/23/22 12/23/22 History [Symbicort 160-4.5 Mcg Inhaler] Celecoxib [CeleBREX] 200 mg PO BID PRN 12/23/22 12/23/22 History Cholecalciferol [Vitamin D3 (25 50 mcg PO DAILY 12/23/22 12/23/22 History Mcg = 1000 Iu)] Cyanocobalamin [Vitamin B-12] 500 mcg PO DAILY 12/23/22 12/23/22 History Furosemide [Lasix] 20 mg PO DAILY PRN 12/23/22 12/23/22 History Gabapentin 300 mg PO TID 12/23/22 12/23/22 History Sildenafil Citrate [Viagra] 50 mg PO DAILY PRN 12/23/22 12/23/22 History Allergies Allergy/AdvReac Type Severity Reaction Status Date / Time No Known Allergies Allergy Verified 12/23/22 11:10 Physical Exam Vitals: Vital Signs Temp Pulse Pulse Resp BP BP Pulse Ox 12/23/22 12:10 98.8 F 111 H 18 133/96 96 12/23/22 11:35 115 H 18 128/93 99 12/23/22 10:40 111 H 20 119/79 95 12/23/22 10:30 112 H 15 119/79 93 L 12/23/22 10:20 116 H 9 L 119/79 94 L 12/23/22 10:10 116 H 6 L 119/79 96 12/23/22 10:00 111 H 29 H 119/79 93 L 12/23/22 09:50 114 H 23 119/79 93 L 12/23/22 09:40 115 H 24 119/79 95 12/23/22 09:30 121 H 14 119/79 95 12/23/22 09:20 128 H 32 H 119/79 92 L 12/23/22 09:10 108 H 24 119/79 95 12/23/22 09:00 116 H 17 119/79 97 12/23/22 08:50 110 H 19 119/79 95 12/23/22 08:40 109 H 21 119/79 95 12/23/22 08:30 112 H 12 119/79 96 12/23/22 08:20 110 H 27 H 119/79 96 12/23/22 08:10 117 H 27 H 119/79 96 12/23/22 08:00 122 H 14 119/79 96 12/23/22 07:50 113 H 32 H 119/79 95 12/23/22 07:40 111 H 31 H 119/79 94 L 12/23/22 07:30 98.7 F 109 H 5 L 119/79 95 12/23/22 07:20 111 H 11 L 119/79 95 12/23/22 07:10 109 H 16 119/79 97 12/23/22 07:00 105 H 14 119/79 97 12/23/22 06:50 111 H 10 L 119/79 95 12/23/22 06:40 103 H 24 119/79 95 12/23/22 06:30 106 H 24 119/79 95 12/23/22 06:20 120 H 18 119/79 99 12/23/22 06:13 107 H 18 119/79 95 12/23/22 06:10 109 H 26 H 117/85 94 L 12/23/22 06:00 107 H 26 H 117/85 96 12/23/22 05:50 120 H 18 117/85 100 12/23/22 05:40 108 H 23 117/85 95 12/23/22 05:30 113 H 10 L 117/85 95 12/23/22 05:20 110 H 22 117/85 96 12/23/22 05:10 107 H 24 117/85 97 12/23/22 05:00 108 H 24 117/85 96 12/23/22 04:50 105 H 23 117/85 96 12/23/22 04:40 111 H 18 117/85 95 12/23/22 04:30 118 H 20 113/82 96 12/23/22 04:20 114 H 24 113/82 94 L 12/23/22 04:10 116 H 29 H 113/82 94 L 12/23/22 04:00 130 H 16 113/82 93 L 12/23/22 03:50 112 H 11 L 113/82 99 12/23/22 03:40 112 H 15 113/82 96 12/23/22 03:30 114 H 34 H 113/82 96 12/23/22 03:20 115 H 12 113/82 96 12/23/22 03:10 115 H 27 H 113/82 96 12/23/22 03:08 112 H 113/82 97 12/23/22 03:00 120 H 25 H 126/86 98 12/23/22 02:50 117 H 30 H 96 12/23/22 02:41 126/86 12/23/22 02:30 126/86 12/23/22 02:20 121 H 21 126/86 12/23/22 02:10 138 H 45 H 126/86 89 L 12/23/22 02:00 114 H 30 H 126/86 97 12/23/22 01:50 116 H 20 126/86 96 12/23/22 01:40 121 H 24 126/86 95 12/22/22 23:38 117 H 18 131/95 98 Intake and Output 12/22/22 12/23/22 12/23/22 22:59 06:59 14:59 Other: Voiding Method Toilet Weight 113.398 kg 113.398 kg Results CBC & Chem 7: 12/22/22 20:06 12/22/22 20:06 Labs: Abnormal Lab Results - Last 24 Hours (Table) 12/22/22 Range/Units 20:06 Sodium 134 L (137-145) mmol/L Chloride 96 L (98-107) mmol/L BUN 27 H (9-20) mg/dL Creatinine 1.33 H (0.66-1.25) mg/dL Thrombosis Risk Factor Assmnt - Choose All That Apply Each Factor Represents 1 point: Obesity (BMI >25) Each Risk Factor Represents 2 Points: Age 61-74 years Thrombosis Risk Factor Assessment Total Risk Factor Score: 3 Thrombosis Risk Factor Assessment Level: Moderate Risk
[2022-12-23] MEDS: SODIUM CHLORIDE 0.9% 1,000 ML IV SCH ×2 (13:05→21:12)
[2022-12-23] MEDS: PROPRANOLOL LA 60 MG CAP.SA.24H PO SCH (13:05)
[2022-12-23] MEDS: GABAPENTIN 300 MG CAP PO SCH ×2 (16:33→21:11)
[2022-12-23] MEDS ORDERED: PANTOPRAZOLE 40 MG TABLET PO STA (17:48)
[2022-12-23] MEDS: SYMBICORT 160-4.5 MCG INHALER INHALATION SCH (19:52)
[2022-12-23] MEDS: DOCUSATE 100 MG CAP PO SCH (21:11)
[2022-12-23] MEDS: CYCLOBENZAPRINE 10 MG TAB PO PRN (21:11)
--- NOTE | 2022-12-24 01:27 | CONS ---
CONSULTATION CHIEF COMPLAINT: Chest pain. HISTORY OF PRESENT ILLNESS: Jason is a 61-year-old gentleman with history of hypertension and dyslipidemia who presented to hospital complaining of chest pain. He describes it as a precordial chest pressure unrelated to exertion, also with diaphoresis. It came on suddenly, moderate to severe intensity. Came to the ER. EKG showed sinus rhythm with poor R-wave progression suggestive of prior anteroseptal myocardial infarction. The patient had a CT scan of the thoracic aorta that was unremarkable. At the time of my evaluation, he appeared chest pain free. He has had 3 sets of cardiac enzymes that are negative. I will schedule him for a Lexiscan tomorrow morning. PAST MEDICAL HISTORY: Significant for hypertension, dyslipidemia, and COPD. CURRENT MEDICATIONS: 1. Requip. 2. Viagra. 3. Lasix. 4. Flexeril. 5. Celebrex. 6. Symbicort. 7. Lipitor. 8. Neurontin. 9. Inderal. 10.Zestoretic. ALLERGIES: There are no known drug allergies. FAMILY HISTORY: Negative for premature coronary artery disease. SOCIAL HISTORY: Negative for current smoking, EtOH abuse, or drug abuse. REVIEW OF SYSTEMS: A review of systems has been performed, pertinence are as documented. ASSESSMENT: Precordial chest pain, rule out CAD. PLAN: The patient will undergo stress test tomorrow and if this is abnormal, undergo cardiac catheterization. TOMAS / LAYNE: [id number] /
[2022-12-24] MEDS ORDERED: REGADENOSON 0.4 MG/5 ML SYRINGE IV PRN (06:00)
[2022-12-24] MEDS ORDERED: CAFFEINE CITRATE 60 MG/3 ML VIAL IV PRN (06:00)
[2022-12-24] MEDS ORDERED: AMINOPHYLLINE 500 MG/20 ML VIAL IV PRN (06:00)
[2022-12-24] MEDS: PANTOPRAZOLE 40 MG TABLET PO SCH (06:03)
[2022-12-24] MEDS: DOCUSATE 100 MG CAP PO SCH ×2 (09:07→20:38)
[2022-12-24] MEDS: ATORVASTATIN 20 MG TAB PO SCH (09:07)
[2022-12-24] MEDS: PROPRANOLOL LA 60 MG CAP.SA.24H PO SCH (09:07)
[2022-12-24] MEDS: GABAPENTIN 300 MG CAP PO SCH ×3 (09:07→20:38)
[2022-12-24] MEDS: SODIUM CHLORIDE 0.9% 1,000 ML IV SCH (09:08)
--- NOTE | 2022-12-24 09:13 | PN ---
PROGRESS NOTE SUBJECTIVE: Jason is a 61-year-old gentleman, who is admitted to hospital with chest pain and ruled out for myocardial infarction. This morning, he is doing well and is free of symptoms. OBJECTIVE: GENERAL: Comfortable at rest. VITAL SIGNS: Stable. CHEST: Reveals good air entry bilaterally. HEART: Reveals first and second heart sounds. No gallop. ABDOMEN: Soft. EXTREMITIES: Did not reveal any edema. Peripheral pulses are felt. ASSESSMENT: Chest pain, rule out coronary artery disease. PLAN: The patient will undergo a stress test today. If this is normal, he will go home. If not, we will perform a cardiac catheterization on him. MMODL / IJN: [id number] /
[2022-12-24] MEDS: SYMBICORT 160-4.5 MCG INHALER INHALATION SCH ×2 (09:27→19:37)
--- NOTE | 2022-12-24 11:14 | CA ---
Transthoracic Echo Report Name: Jason Hu Age: 61 Gender: M : 1960 Exam Date: 12/24/2022 08:23 Exam Location: [facility] Ht (in): 70 Wt (lb): 250 Ordering Physician: Martir Joiner MD ([id number]) Attending/Referring Phys: Martir Joiner MD ([id number]) Change Lead Enrique Wise Procedure CPT: Indications: Chest Pain Cardiac Hx: Technical Quality: Fair Contrast 1: Lumason Total Dose (mL): 5 Contrast 2: Definity Total Dose (mL): 10 MEASUREMENTS (Male / Female) Normal Values 2D ECHO LV Diastolic Diameter PLAX 3.5 cm 4.2 - 5.9 / 3.9 - 5.3 cm LV Systolic Diameter PLAX 2.8 cm IVS Diastolic Thickness 1.8 cm 0.6 - 1.0 / 0.6 - 0.9 cm LVPW Diastolic Thickness 1.6 cm 0.6 - 1.0 / 0.6 - 0.9 cm LV Relative Wall Thickness 1.0 RV Internal Dim ED PLAX 2.8 cm LVOT Diameter 2.2 cm Aortic Root Diameter 3.9 cm LA Systolic Diameter LX 2.2 cm 3.0 - 4.0 / 2.7 - 3.8 cm LV Diastolic Volume MOD BP 49.6 cm??? 67 - 155 / 56 - 104 cm??? LV Systolic Volume MOD BP 12.7 cm??? 22 - 58 / 19 - 49 cm??? LV Ejection Fraction MOD BP 74.4 % >= 55 % LV Diastolic Volume MOD 4C 54.0 cm??? LV Systolic Volume MOD 4C 12.2 cm??? LV Ejection Fraction MOD 4C 77.3 % LV Diastolic Length 4C 7.0 cm LV Systolic Length 4C 5.8 cm LV Diastolic Volume MOD 2C 43.3 cm??? LV Systolic Volume MOD 2C 12.8 cm??? LV Ejection Fraction MOD 2C 70.4 % LV Diastolic Length 2C 6.6 cm LV Systolic Length 2C 5.6 cm LA Volume 38.4 cm??? 18 - 58 / 22 - 52 cm??? Ascending Aorta Diameter 3.3 cm DOPPLER AV Peak Velocity 128.3 cm/s AV Peak Gradient 6.6 mmHg LVOT Peak Velocity 137.2 cm/s LVOT Peak Gradient 7.5 mmHg AV Area Cont Eq pk 4.2 cm??? MV Peak Velocity 104.7 cm/s MV Peak Gradient 4.4 mmHg MV Mean Velocity 53.2 cm/s MV Mean Gradient 1.4 mmHg MV Velocity Time Integral 23.2 cm MR Peak Velocity 267.7 cm/s MR Peak Gradient 28.7 mmHg Mitral E Point Velocity 71.6 cm/s Mitral A Point Velocity 92.9 cm/s Mitral E to A Ratio 0.8 MV Deceleration Time 153.2 ms MV E' Velocity 6.3 cm/s Mitral E to MV E' Ratio 11.4 TR Peak Velocity 122.4 cm/s TR Peak Gradient 6.0 mmHg Right Ventricular Systolic Press 11.0 mmHg FINDINGS Left Ventricle Left ventricular ejection fraction is estimated at 60-65 %. Right Ventricle Normal right ventricular size. Right Atrium Normal right atrial size. Left Atrium Normal left atrial size. Mitral Valve Structurally normal mitral valve. Mild MR. Aortic Valve Not well visualized. Grossly normal. No AI. Tricuspid Valve Tricuspid valve not well visualized. No tricuspid regurgitation. Pulmonic Valve Pulmonic valve not well visualized. No pulmonic regurgitation. Pericardium Normal pericardium. Aorta Normal size aortic root and proximal ascending aorta. CONCLUSIONS Normal LV systolic function Mild mitral regurgitation Previewed by: Dr. Martir Joiner MD (Electronically Signed) Final Date: 24 December 2022 11:13
--- NOTE | 2022-12-24 11:15 | CA ---
Lexiscan Nuclear Stress Test Report Name: Jason Hu Exam Date: 12/24/2022 10:20 Exam Location: [place] Stress Ht (in): 70 Wt (lb): 250 BSA: 2.29 Ordering Phys: Martir Joiner MD Referring Phys: Martir Joiner MD Technologist: Greg Ospina Age: 61 Gender: M : 1960 Procedure CPT: Indications: Reflex order-Stress test ICD-10 Codes: Patient History: CHEST PAIN, HTN, ELEVATED CHOLESTEROL LEVELS Medications: Meds past 24 hrs: Pretest Chest Pain: STRESS TEST Lexiscan Protocol Exercise Duration (min:sec): 02:[address] Depressions (mm): Angina Score: Lino Score: Resting HR (bpm): 84 Peak HR (bpm): 97 Resting BP (mmHg): 135 / 100 Peak BP (mmHg): 135 / 100 MPHR: 157 Target HR: 133 % MPHR: 62 METS: 1.0 Total Dose: Peak Dose: Atropine: Double Product: 37779 BP Response: Stress Termination: INFUSION COMPLETE Stress Symptoms: NO SYMPTOMS Stress Summary: ECG ANALYSIS Resting ECG: Normal sinus rhythm with poor R-wave progression Stress ECG: Patient received Lexiscan as per protocol did not have chest pain or diagnostic ST segment depression CONCLUSIONS Negative stress test by EKG criteria Cardiolite portion of the stress test will be reported separately Dr. Martir Joiner MD (Electronically Signed) Final Date: 24 December 2022 11:14
--- NOTE | 2022-12-24 14:20 | NM ---
EXAMINATION TYPE: NM stress lexiscan cardiolite DATE OF EXAM: 12/24/2022 COMPARISON: NONE CLINICAL INDICATION: Male, 61 years old with history of chest pain; TECHNIQUE: After the intravenous administration of 10.3 mCi Tc 99m Sestamibi - Cardiolite resting SP ECT images acquired 110 minutes post injection. The patient received 0.4mg Lexiscan, 24.7 mCi Tc 99m Sestamibi - Stress images obtained [address] injection FINDINGS: Review of stress and rest SPECT images demonstrates findings suspicious for small area of stress-estefani arlin reversibility involving lateral wall myocardium. Gated analysis shows normal wall motion with an estimated left ventricular ejection fraction of 68 %. IMPRESSION: Findings suspicious for small area of stress-induced reversible ischemia lateral wall. Report called to the patient's nurse 2:17 PM 12/24/2022.
[2022-12-24] MEDS ORDERED: ASPIRIN 325 MG TAB PO STA (14:31)
[2022-12-24] MEDS ORDERED: ALPRAZolam 0.25 MG TAB PO PRN (14:31)
[2022-12-24] MEDS ORDERED: ATORVASTATIN 20 MG TAB PO STA (14:31)
[2022-12-24] MEDS ORDERED: ALPRAZolam 0.5 MG TAB PO PRN (14:31)
[2022-12-24] MEDS ORDERED: NITROGLYCERIN SL TABS 0.4 MG TAB SUBLINGUAL PRN (14:31)
--- NOTE | 2022-12-24 15:16 | P.PN ---
Subjective Progress Note Date: 12/24/22 60-year-old pleasant male came in with complaints of retrosternal sharp and dull chest pain which is not reproducible without any identifiable aggravating or relieving factors nonpruritic in nature not associated with food denied any association shortness of breath or orthopnea denied any association with nausea vomiting diaphoresis lightheadedness, episodic lasting for few minutes. Patient currently has sinus tachycardia patient had history of frequent PVCs because of which patient is on propranolol sustained release every day in the morning which he didn't receive today. 12/24/2022 Patient is seen and evaluated in follow-up today and being followed by cardiology. Patient is currently nothing by mouth planning for stress testing today. Patient denies chest pain or palpitations and denies shortness of breath at this time. Patient is anxious to go home although awaiting cardiology cleara nce. Patient is currently afebrile with no reports of nausea or vomiting and will be fed after stress testing. Patient reports has been up and walking and denies any episodes of dizziness or lightheadedness. Discussed further with cardiology if stress testing is abnormal than likely will do cardiac catheterization. Will await cardiology report. Review of systems: Constitutional: No reports of fatigue, fever, or chills Cardiovascular: No reports of chest pain or palpitations Respiratory: No reports of shortness of breath or cough GI: No reports of nausea, vomiting, or diarrhea : No reports of dysuria or retention Neurovascular: No reports of weakness or numbness PHYSICAL EXAMINATION: GENERAL: The patient is alert and oriented x3, not in any acute distress. Well developed, well nourished. HEENT: Pupils are round and equally reacting to light. EOMI. No scleral icterus. No conjunctival pallor. Normocephalic, atraumatic. No pharyngeal erythema. No thyromegaly. CARDIOVASCULAR: S1 and S2 present. No murmurs, rubs, or gallops. Irregular tachycardic PULMONARY: Chest is clear to auscultation, no wheezing or crackles. ABDOMEN: Soft, nontender, nondistended, normoactive bowel sounds. No palpable organomegaly. MUSCULOSKELETAL: No joint swelling or deformity. EXTREMITIES: No cyanosis, clubbing, or pedal edema. NEUROLOGICAL: Gross neurological examination did not reveal any focal deficits. SKIN: No rashes. Assessment: -Chest pain atypical, ruled out acute coronary syndrome, troponins are negative -Abnormal stress test showing small areas of stress-induced reversible ischemia at the lateral wall -Hypovolemic hyponatremia secondary to thiazide which will be held -Mild acute renal failure secondary to hydrochlorothiazide -Sinus tachycardia with frequent PVCs, reflux tachycardia from not taking his beta pacheco -Hyperlipidemia -Hypertension -Obesity with a BMI of 35.9 -DVT prophylaxis: Lovenox -Full code Plan: Recommend continue telemetry monitoring. Stress report Lexiscan came back abnormal with some areas of small reducible ischemia and cardiology following recommend cardiac catheterization. Patient will be nothing by mouth at midnight and will await cardiology report Will follow-up with repeat labs and continue gentle IV hydration although reduce d rate Will await catheterization report with possible discharge if catheterization is negative tomorrow. Possible discharge in 24 hours The impression and plan of care has been dictated by Dennise Womack, Nurse Practitioner as directed. Dr. Kiera MD I have performed a history and examination and MDM of this patient, discussed the same with the dictator, and agree with the dictator's assessment and plan as written ,documented as a scribe. Based on total visit time, I have performed more than 50% of the visit. Objective - Vital Signs Vital signs: Vital Signs Temp 97.7 F 12/24/22 07:00 Pulse 96 12/24/22 07:00 Resp 18 12/24/22 07:00 BP 115/74 12/24/22 07:00 Pulse Ox 95 12/24/22 07:00 FiO2 Intake & Output 12/23/22 12/24/22 12/24/22 18:59 06:59 18:59 Intake Total 120 Balance 120 Weight 113.398 kg Intake: Oral 120 Other: Voiding Method Toilet # Voids 3 - Labs CBC & Chem 7: 12/22/22 20:06 12/22/22 20:06
[2022-12-24] MEDS: CYCLOBENZAPRINE 10 MG TAB PO PRN (20:38)
[2022-12-25] MEDS ORDERED: ATORVASTATIN 80 MG TAB PO ONE (05:00)
[2022-12-25] MEDS ORDERED: ASPIRIN 325 MG TAB PO ONE (05:00)
[2022-12-25] MEDS: PANTOPRAZOLE 40 MG TABLET PO SCH (05:53)
[2022-12-25] MEDS: SODIUM CHLORIDE 0.9% 1,000 ML IV SCH (05:55)
[2022-12-25] MEDS: ATORVASTATIN 20 MG TAB PO SCH (06:30)
[2022-12-25] MEDS ORDERED: HEPARIN SODIUM,PORCINE 2,500 UNIT in SODIUM CHLORIDE 0.9% 250 ML IRRIGATION PRN (07:00)
[2022-12-25] MEDS ORDERED: HEPARIN SODIUM,PORCINE 10,000 UNIT in SODIUM CHLORIDE 0.9% 1,000 ML IRRIGATION PRN (07:00)
[2022-12-25] MEDS ORDERED: MIDAZOLAM 2 MG/2 ML VIAL IV ONE (08:29)
[2022-12-25] MEDS: fentaNYL (PF) 50 MCG/1 ML VIAL IV ONE ×2 (08:29→08:43)
[2022-12-25] MEDS ORDERED: IV FLUID CONTINUATION 1,000 ML IV ONE (08:30)
[2022-12-25] MEDS ORDERED: LIDOCAINE 1% INJ 10MG/ML (5 ML VIAL-PF) SQ ONE (08:31)
[2022-12-25] MEDS ORDERED: VERAPAMIL SYRINGE (5 MG/10 ML) INTRAARTER ONE (08:33)
[2022-12-25] MEDS ORDERED: HEPARIN SODIUM 1,000 UN/ML (10ML VL) IV ONE (08:36)
[2022-12-25] MEDS ORDERED: IOPAMIDOL-370 100ML BTL INJ ONE (08:45)
--- NOTE | 2022-12-25 08:46 | PN ---
PROGRESS NOTE A 61-year-old gentleman who is admitted to hospital with chest pain and had an abnormal stress test. He is to undergo cardiac catheterization today. MMBRYANL / IJN: [id number] /
[2022-12-25] MEDS ORDERED: RX INFO: IV CONTRAST WAS GIVEN 1 EACH MISC MISCELLANE PRN (08:52)
[2022-12-25] MEDS ORDERED: SODIUM CHLORIDE 0.9% 1,000 ML IV SCH (09:00)
[2022-12-25] MEDS: PROPRANOLOL LA 60 MG CAP.SA.24H PO SCH (09:16)
[2022-12-25] MEDS: GABAPENTIN 300 MG CAP PO SCH (09:16)
[2022-12-25] MEDS: DOCUSATE 100 MG CAP PO SCH (09:16)
--- NOTE | 2022-12-25 10:03 | CC ---
CARDIAC CATHETERIZATION REPORT INDICATIONS: Chest pain with abnormal stress test. PROCEDURE NOTE: After obtaining informed consent, left heart catheterization and coronary angiogram were performed via the right radial artery using standard Lg catheters. The patient tolerated the procedure well without any obvious immediate complications. Received moderate conscious sedation. Total sedation time was 15 minutes. The right radial artery access was obtained using modified Seldinger technique. A 6- Moroccan sheath was placed. Catheters and wires were floated into the ascending aorta under fluoroscopic guidance. The patient received 5 mg of verapamil and heparin per protocol and a TR band was used for hemostasis. FINDINGS: 1. Hemodynamics: Left ventricular end-diastolic pressure is 8 to 10 mm. There is no significant gradient across the aortic valve. 2. Left Ventriculogram: Left ventriculogram is not performed. 3. Angiographic Data: a.Right Coronary Artery: Right coronary artery is a codominant vessel and is free of significant stenosis. Left main coronary artery is a short vessel and is free of disease. Divides into left anterior descending coronary artery and circumflex coronary artery. LAD and its branches, circumflex coronary artery and its branches are free of significant stenosis. CONCLUSIONS: 1. Normal coronaries. 2. Noncardiac chest pain. 3. False-positive stress test. PLAN: Patient may be discharged home later today and follow up with Cardiology in 3 weeks' time. MMODL / IJN: [id number] /
[2022-12-25] MEDS: SYMBICORT 160-4.5 MCG INHALER INHALATION SCH (10:04)
[2022-12-25 10:31] VITALS: RESP 16; TEMP 98
[2022-12-25 11:05] LABS: Basophils # (A) 0.06 X 10*3/uL (0.00-0.10); Basophils % (A) 0.8 %; Eosinophils # (A) 0.19 X 10*3/uL (0.04-0.35); Eosinophils % (A) 2.5 %; HGB 14.8 g/dL (13.0-17.0); Immature Grans, Automated 0.5 %; Lymphocytes # (A) 1.09 X 10*3/uL (0.90-5.00); Lymphocytes % (A) 14.2 %; MCHC 32.9 g/dL (32.0-37.0); MCV 94.1 fL (80.0-97.0); Monocytes % (A) 14.3 %; NRBC Per 100 WBC 0 /100 WBCS (0.0-0.0); Neutrophils # (A) 5.21 X 10*3/uL (1.80-7.70); Neutrophils % (A) 67.7 %; Platelet Count 273 X 10*3/uL (140-440); RBC 4.78 X 10*6/uL (4.40-5.60); WBC 7.69 X 10*3/uL (4.50-10.00)
[2022-12-25 11:35] LABS: African American GFR (CKD) 82.4 (60.0-200.0); Anion Gap 11.2 mmol/L (10.00-18.00); Blood Urea Nitrogen 18.7 mg/dL (9.0-27.0); Calcium 9.4 mg/dL (8.7-10.3); Carbon Dioxide 25.8 mmol/L (20.0-27.5); Magnesium 2.1 mg/dL (1.5-2.4); Non-African American GFR(CKD) 71.1 (60.0-200.0); Potassium 4.7 mmol/L (3.5-5.5)
[2022-12-25 13:14] VITALS: BP 122/84; PULSE 98
--- NOTE | 2022-12-26 11:17 | P.DS ---
Providers Date of admission: 12/23/22 04:06 Expected date of discharge: 12/25/22 Attending physician: Coleman Purvis MD Consults: 12/23/22 04:05 Consult Physician Stat Consulting Provider: Martir Joiner Consult Reason/Comments: chest pain Do you want consulting provider notified?: Yes Primary care physician: Jagruti Burton Hospital Course: Final diagnosis -Chest pain atypical, ruled out acute coronary syndrome, troponins are negative -Abnormal stress test showing small areas of stress-induced reversible ischemia at the lateral wall status post cardiac catheterization which was clear -Hypovolemic hyponatremia secondary to thiazide which will be held -Mild acute renal failure secondary to hydrochlorothiazide -Sinus tachycardia with frequent PVCs, reflux tachycardia from not taking his beta pacheco -Hyperlipidemia -Hypertension -Obesity with a BMI of 35.9 -DVT prophylaxis: Lovenox -Full code Discharge disposition Patient is being discharged in a stable condition with guarded prognosis to home. Patient will follow-up with Dr. Burton in the outpatient setting upon discharge. Patient is to follow-up with cardiology outpatient as scheduled. Total time taken is greater than 35 minutes. Hospital course This is a 61-year-old male who was recently admitted chest pain and underwent stress testing which showed some areas of stress-induced reversible ischemia at the lateral wall and cardiology recommending cardiac catheterization. Patient underwent cardiac catheterization this morning which was clear with no interventions at this time and would recommend outpatient follow-up in the next 1-2 weeks. Continue with current medications as mentioned below and lisinopril/hctz was discontinued recommend monitoring of blood pressure and close outpatient follow-up. Please refer to cardiology notes for further HPI. Patient reports he has been having some increased acid reflux and takes Nexium as needed at home and has not been helping. Patient reports Protonix has been helping and will prescribe and instructed to follow-up with primary care provider about this matter. Patient reports he does have follow-up appointment this week. Currently no reports of chest pain, shortness of breath, or palpitations. Patient is afebrile. No reports of nausea or vomiting and patient is tolerating diet. Patient will be discharged home today. Physical exam: Gen: This is a 61-year-old male who is awake, alert and oriented 3, well- developed, well-nourished, obese HEENT: Head is atraumatic, normocephalic. Pupils equal, round. Sclerae is anicteric. NECK: Supple. No JVD. No lymphadenopathy. No thyromegaly. LUNGS: Clear to auscultation. No wheezes or rhonchi. No intercostal retractions. HEART: Regular rate and rhythm. No murmur. ABDOMEN: Soft. Bowel sounds are present. No masses. No tenderness. EXTREMITIES: No pedal edema. No calf tenderness. NEUROLOGICAL: Patient is awake, alert and oriented x3. Cranial nerves 2 through 12 are grossly intact. Please refer to medication reconciliation sheet for a list of medications. The impression and plan of care has been dictated by Dennise Womack, Nurse Practitioner as directed. Dr. Kiera MD I have performed a history and examination and MDM of this patient, discussed the same with the dictator, and agree with the dictator's assessment and plan as written ,documented as a scribe. Based on total visit time, I have performed more than 50% of the visit. Patient Condition at Discharge: Stable Plan - Discharge Summary New Discharge Prescriptions: New Docusate [Colace] 100 mg PO BID PRN #30 cap PRN Reason: Constipation Pantoprazole [Protonix] 40 mg PO AC-BRKFST #30 tab Acetaminophen Tab [Tylenol] 650 mg PO Q6HR PRN tab PRN Reason: Mild Pain Or Fever > 100.5 Continue Atorvastatin [Lipitor] 20 mg PO DAILY rOPINIRole HCL [Requip] 0.25 mg PO HS Cyclobenzaprine [Flexeril] 10 mg PO TID PRN PRN Reason: Muscle Spasm Propranolol LA [Inderal LA] 60 mg PO DAILY traMADol HCL [Ultram] 100 mg PO QID PRN PRN Reason: Pain Budesonide/Formoterol Fumarate [Symbicort 160-4.5 Mcg Inhaler] 2 puff INHALATION RT-BID Celecoxib [CeleBREX] 200 mg PO BID PRN PRN Reason: Pain Cholecalciferol [Vitamin D3 (25 Mcg = 1000 Iu)] 50 mcg PO DAILY Cyanocobalamin [Vitamin B-12] 500 mcg PO DAILY Furosemide [Lasix] 20 mg PO DAILY PRN PRN Reason: Edema Gabapentin 300 mg PO TID Sildenafil Citrate [Viagra] 50 mg PO DAILY PRN PRN Reason: E.D. Discontinued Lisinopril-Hctz 20-25 mg [Zestoretic 20-25] 1 tab PO DAILY Discharge Medication List Atorvastatin [Lipitor] 20 mg PO DAILY 06/23/17 [History] Cyclobenzaprine [Flexeril] 10 mg PO TID PRN 09/06/20 [History] Propranolol LA [Inderal LA] 60 mg PO DAILY 09/06/20 [History] rOPINIRole HCL [Requip] 0.25 mg PO HS 09/06/20 [History] traMADol HCL [Ultram] 100 mg PO QID PRN 09/06/20 [History] Budesonide/Formoterol Fumarate [Symbicort 160-4.5 Mcg Inhaler] 2 puff INHALATION RT-BID 12/23/22 [History] Celecoxib [CeleBREX] 200 mg PO BID PRN 12/23/22 [History] Cholecalciferol [Vitamin D3 (25 Mcg = 1000 Iu)] 50 mcg PO DAILY 12/23/22 [History] Cyanocobalamin [Vitamin B-12] 500 mcg PO DAILY 12/23/22 [History] Furosemide [Lasix] 20 mg PO DAILY PRN 12/23/22 [History] Gabapentin 300 mg PO TID 12/23/22 [History] Sildenafil Citrate [Viagra] 50 mg PO DAILY PRN 12/23/22 [History] Acetaminophen Tab [Tylenol] 650 mg PO Q6HR PRN tab 12/25/22 [Rx] Docusate [Colace] 100 mg PO BID PRN #30 cap 12/25/22 [Rx] Pantoprazole [Protonix] 40 mg PO AC-BRKFST #30 tab 12/25/22 [Rx] Follow up Appointment(s)/Referral(s): Jagruti Burton MD [Primary Care Provider] - 1-2 days Martir Joiner MD [STAFF PHYSICIAN] - 01/05/23 3:30 pm Patient Instructions/Handouts: *Surgery [facility] - After Heart Catheterization - [employer] Instructions, After Radial Heart Catheterization (GEN) Activity/Diet/Wound Care/Special Instructions: Activity Limited until follow-up Follow-up with primary care provider on discharge Follow-up cardiology outpatient as scheduled Continue taking medication as prescribed Follow cardiac diet Discharge Disposition: HOME SELF-CARE
== END 2022-12-25 14:25 | disposition home or self-care (01) ==
LOC: EC 16:25 → 6NMEDSUR 12-23 04:06
PROVIDERS: ADMIT Internal Medicine; ATTEND Internal Medicine
DX: R07.89 Other chest pain (principal); I25.89 Other forms of chronic ischemic heart disease; N17.9 Acute kidney failure, unspecified; N20.0 Calculus of kidney; I49.3 Ventricular premature depolarization; E86.1 Hypovolemia; E87.1 Hypo-osmolality and hyponatremia; T50.2X5A Adverse effect of carbonic-anhydrase inhibitors, benzothiadiazides and other diuretics, initial encounter; I10 Essential (primary) hypertension; E78.5 Hyperlipidemia, unspecified; G25.81 Restless legs syndrome; J98.11 Atelectasis; I34.0 Nonrheumatic mitral (valve) insufficiency; M85.88 Other specified disorders of bone density and structure, other site; M41.85 Other forms of scoliosis, thoracolumbar region; E66.9 Obesity, unspecified; K21.9 Gastro-esophageal reflux disease without esophagitis; R00.0 Tachycardia, unspecified; Z91.148 Patient's other noncompliance with medication regimen for other reason; Z79.899 Other long term (current) drug therapy; Z87.891 Personal history of nicotine dependence; Z79.51 Long term (current) use of inhaled steroids; Z79.1 Long term (current) use of non-steroidal anti-inflammatories (NSAID); Z68.35 Body mass index [BMI] 35.0-35.9, adult
CPT/HCPCS: 99285; 36415; 94640 ×4; 93005; 93017; 80053; 80048; 83735 ×2; 84484 ×2; 85025 ×2; 85610; 85730; 71046; 71275; 74174; 78452; 93458; G0378 ×3; C8929; A9500; J2250; J2001; J1644; J2785; Q9950; Q9967 ×2; J3010; 93306

== ENCOUNTER 2025-02-10 19:53 | Emergency (ER) | payer OTHER, MEDICARE ==
[2025-02-10 19:59] VITALS: BP 185/104; PULSE 78; RESP 18; TEMP 97.5
--- NOTE | 2025-02-10 20:03 | ED ---
Male Urogenital HPI - General Source: patient Mode of arrival: ambulatory Limitations: no limitations <Dennise Thornton - Last Filed: 02/11/25 21:08> <Emeka Moody - Last Filed: 02/17/25 06:08> - General Chief complaint: Urogenital Stated complaint: Urogenital/abd pain Time Seen by Provider: 02/10/25 19:59 - History of Present Illness Initial comments: 64M here for dysuria and urinary urgency. Today, he having trouble urinating "felt like he needed to go but I couldn't" then started to have abd pain that radiates to the groin 1hr ago. Associated nausea and nonbloody watery vomitng 3 times in the past hour. Denied fever, chills, hematura, chest pain, SOB. Has history of nephrolithiasis.. (Dennise Thornton) - Related Data Home Medications Medication Instructions Recorded Confirmed Atorvastatin [Lipitor] 20 mg PO DAILY 06/23/17 12/23/22 Cyclobenzaprine [Flexeril] 10 mg PO TID PRN 09/06/20 12/23/22 Propranolol LA [Inderal LA] 60 mg PO DAILY 09/06/20 12/23/22 rOPINIRole HCL [Requip] 0.25 mg PO HS 09/06/20 12/23/22 traMADol HCL [Ultram] 100 mg PO QID PRN 09/06/20 12/23/22 Budesonide/Formoterol Fumarate 2 puff INHALATION RT-BID 12/23/22 12/23/22 [Symbicort 160-4.5 Mcg Inhaler] Celecoxib [CeleBREX] 200 mg PO BID PRN 12/23/22 12/23/22 Cholecalciferol [Vitamin D3 (25 50 mcg PO DAILY 12/23/22 12/23/22 Mcg = 1000 Iu)] Cyanocobalamin [Vitamin B-12] 500 mcg PO DAILY 12/23/22 12/23/22 Furosemide [Lasix] 20 mg PO DAILY PRN 12/23/22 12/23/22 Gabapentin 300 mg PO TID 12/23/22 12/23/22 Sildenafil Citrate [Viagra] 50 mg PO DAILY PRN 12/23/22 12/23/22 Previous Rx's Medication Instructions Recorded Acetaminophen Tab [Tylenol] 650 mg PO Q6HR PRN tab 12/25/22 Docusate [Colace] 100 mg PO BID PRN #30 cap 12/25/22 Pantoprazole [Protonix] 40 mg PO AC-BRKFST #30 tab 12/25/22 Ondansetron [Zofran] 4 mg PO Q8HR PRN #9 tab 02/10/25 traMADol HCL 50 mg PO Q6H 3 Days #12 tab 02/10/25 Allergies Allergy/AdvReac Type Severity Reaction Status Date / Time No Known Allergies Allergy Verified 02/10/25 19:59 Review of Systems ROS Other: All systems not noted in ROS Statement are negative. <Dennise Thornton - Last Filed: 02/11/25 21:08> ROS Other: All systems not noted in ROS Statement are negative. <Emeka Moody - Last Filed: 02/17/25 06:08> ROS Statement: Those systems with pertinent positive or pertinent negative responses have been documented in the HPI. Past Medical History Past Medical History: Hyperlipidemia, Hypertension Additional Past Medical History / Comment(s): RLS. DDD History of Any Multi-Drug Resistant Organisms: None Reported Past Surgical History: Hernia Repair, Joint Replacement, Orthopedic Surgery Additional Past Surgical History / Comment(s): bilat knee total replacements Past Psychological History: No Psychological Hx Reported Smoking Status: Former smoker Past Alcohol Use History: None Reported Past Drug Use History: None Reported - Past Family History Mother Family Medical History: No Reported History <Dennise Thornton - Last Filed: 02/11/25 21:08> General Exam Limitations: no limitations <Dennise Thornton - Last Filed: 02/11/25 21:08> - General Exam Comments Initial Comments: Physical examination: Vital signs reviewed General: non toxic, no distress, appears at stated age, on room air Head: atraumatic, normocephalic, symmetric Mouth: no lip lesion, mucus membranes moist Cardiovascular: S1S2 reg, no murmur Lungs: CTA bilateral, no rhonchi, no rales, no accessory muscle use Abdominal: soft, nondistended, nontender to palpation, no guarding, CVA tenderness right flank, no CVA tenderness on the left flank, right lower quadrant tenderness, tenderness to palpation of groin area Ext: muscle strength 5 out of 5 in all 4 extremities grossly, no gross muscle atrophy, no contractures, positive dorsalis pedis pulse bilateral, no edema Neuro: no gross focal neuro deficits Psych: Alert and oriented x3, appropriate affect and mood (Dennise Thornton) Course <Dennise Thornton - Last Filed: 02/11/25 21:08> Vital Signs 02/10/25 19:56 Temperature 97.5 F L Pulse Rate 78 Respiratory 18 Rate Blood Pressure 185/104 O2 Sat by Pulse 98 Oximetry - Reevaluation(s) Reevaluation #1: 02/10/25 21:56 Patient symptoms improved with pain medication and IV fluids (Dennise Thornton) Medical Decision Making - Lab Data Result diagrams: 02/10/25 20:40 02/10/25 20:40 <Dennise Thornton - Last Filed: 02/11/25 21:08> - Lab Data Result diagrams: 02/10/25 20:40 02/10/25 20:40 <Emeka Moody - Last Filed: 02/17/25 06:08> - Medical Decision Making Was pt. sent in by a medical professional or institution (KATELIN Fajardo, APPLICATION PACKAGING CONSULTANT, urgent care, hospital, or residential...) When possible be specific @ -No Did you speak to anyone other than the patient for history (EMS, parent, family, police, friend...)? What history was obtained from this source @ -No Did you review nursing and triage notes (agree or disagree)? Why? @ -I reviewed and agree with nursing and triage notes Were old charts reviewed (outside hosp., previous admission, EMS record, old EKG, old radiological studies, urgent care reports/EKG's, residential records)? Report findings @ -Old charts reviewed Differential Diagnosis? @ -Differential Abdominal Pain Men: Appendicitis, cholecystitis, diverticulosis, ischemic bowel, pancreatitis, hepatitis, UTI, gastroenteritis, AAA, incarcerated hernia, bowel obstruction, constipation, inflammatory bowel, hepatitis, peptic ulcer disease, splenic infarction, perforated viscus, testicular torsion, this is not meant to be an all-inclusive list EKG interpreted by me (3pts min.). @ -Not done X-rays interpreted by me (1pt min.). @ -None done CT interpreted by me (1pt min.). @ -Hydronephrosis noted, discontinue radiocontrast at the UVJ concerning for stone U/S interpreted by me (1pt. min.). @ -None done What testing was considered but not performed or refused? (CT, X-rays, U/S, labs)? Why? @ -None What meds were considered but not given or refused? Why? @ -None Did you discuss the management of the patient with other professionals (professionals i.e. , PA, APPLICATION PACKAGING CONSULTANT, lab, RT, psych nurse, social science manager, forder operator, teacher, financial aids officer, rehabilitation caseworker)? Give summary @ -Dr. Moody, supervising physician Was smoking cessation discussed for >3mins.? @ -No Was critical care preformed (if so, how long)? @ -No Were there social determinants of health that impacted care today? How? (Homelessness, low income, unemployed, alcoholism, drug addiction, transportation, low edu. Level, literacy, decrease access to med. care, prison, rehab)? @ -No Was there de-escalation of care discussed even if they declined (Discuss DNR or withdrawal of care, Hospice)? DNR status @ -No What co-morbidities impacted this encounter? (DM, HTN, Smoking, COPD, CAD, Cancer, CVA, ARF, Chemo, Hep., AIDS, mental health diagnosis, sleep apnea, morbid obesity)? @ -None Was patient admitted / discharged? Hospital course, mention meds given and route, prescriptions, significant lab abnormalities, going to OR and other pertinent info. @ -Discharged. Given 1 L fluid bolus, IV Zofran once, IV Dilaudid once. CT abdomen and pelvis without contrast ordered. Stone found at the UVJ 3 mm and slight hydronephrosis. Patient given on Flomax and 1 more liter of fluid bolus. Patient symptoms improved throughout stay. Patient was discharged with p.o. pain meds and antinausea medication. Undiagnosed new problem with uncertain prognosis? @ -No Drug Therapy requiring intensive monitoring for toxicity (Heparin, Nitro, Insulin, Cardizem)? @ -No Were any procedures done? @ -No Diagnosis/symptom? @ -[default] Acute, or Chronic, or Acute on Chronic? @ -Acute Uncomplicated (without systemic symptoms) or Complicated (systemic symptoms)? @ -Uncomplicated Side effects of treatment? @ -No Exacerbation, Progression, or Severe Exacerbation? @ -No Poses a threat to life or bodily function? How? (Chest pain, [place], [place], pneumonia, PE, COPD, DKA, ARF, appy, cholecystitis, CVA, Diverticulitis, Homicidal, Suicidal, threat to staff... and all critical care pts) @ -No (Dennise Thornton) I personally saw the patient and performed the critical portion of the service. I discussed the patient care with the Dr. Thornton. I directed management, care planning and final disposition of the patient. This includes, but not limited to, review of all lab work, radiological studies, EKG's, consultations, vital signs, and nursing notes. EKG interpreted by me (3pts min.) @As above X-Rays interpreted by me (1 pt min.) @None CT interpreted by me ( 1pt min.) @CT shows obstructive nephropathy U/S interpreted by me (1 pt min.) @None Critical care time of 0 minutes excluding separately billable procedures was spent in conjunction with critical care activities provided by the Resident and Attending simultaneously. I was present during no procedures for all critical portions of the procedure and as immediately available to furnish service during the entire procedure. (Emeka Moody) - Lab Data Lab Results 02/10/25 02/10/25 02/10/25 Range/Units 20:40 20:40 20:40 WBC 7.38 (4.50-10.00) 10*3/uL RBC 4.52 (4.40-5.60) 10*6/uL Hgb 15.0 (13.0-17.0) g/dL Hct 43.0 (39.6-50.0) % MCV 95.1 (80.0-97.0) fL MCH 33.2 H (27.0-32.0) pg MCHC 34.9 (32.0-37.0) g/dL Plt Count 236 (140-440) 10*3/uL MPV 10.0 (9.5-12.2) fL Immature Gran % (Auto) 0.4 % Neutrophils % 78.8 % Lymphocytes % 8.4 % Monocytes % 10.3 % Eosinophils % 1.2 % Basophils % 0.9 % Immature Gran # 0.03 (0.00-0.04) 10*3/uL Neutrophils # 5.81 (1.80-7.70) 10*3/uL Lymphocytes # 0.62 L (0.90-5.00) 10*3/uL Monocytes # 0.76 (0.20-1.00) 10*3/uL Eosinophils # 0.09 (0.04-0.35) 10*3/uL Basophils # 0.07 (0.00-0.10) 10*3/uL Sodium 140 (137-145) mmol/L Potassium 4.3 (3.5-5.1) mmol/L Chloride 106 (98-107) mmol/L Carbon Dioxide 23 (22-30) mmol/L Anion Gap 11 mmol/L BUN 17 (9-20) mg/dL Creatinine 1.38 H (0.66-1.25) mg/dL Est GFR (CKD-EPI)AfAm 61 (>60 ml/min/1.73 sqM) Est GFR (CKD-EPI)NonAf 53 (>60 ml/min/1.73 sqM) Glucose 130 H (74-99) mg/dL Calcium 9.2 (8.4-10.2) mg/dL Urine Color Dark [place] Urine Appearance Clear (Clear) Urine RBC 18 H (0-5) /hpf Urine WBC 4 (0-5) /hpf Ur Squamous Epith Cells 1 (0-4) /hpf Urine Bacteria Rare H (None) /hpf Urine Mucus Rare H (None) /hpf Urine Yeast (Budding) Rare H (None) /hpf Disposition Is patient prescribed a controlled substance at d/c from ED?: No Time of Disposition: 21:54 <Dennise Thornton - Last Filed: 02/11/25 21:08> <Emeka Moody - Last Filed: 02/17/25 06:08> Clinical Impression: Nephrolithiasis Disposition: HOME SELF-CARE Condition: Good Instructions (If sedation given, give patient instructions): Kidney Stones (ED) Additional Instructions: Every disease is a spectrum and a small chance still exists that a serious condition could develop, for this reason, please monitor yourself closely for new, changing or worsening symptoms, symptoms that persist beyond another 72 hours, intractable nausea, vomiting, fever, chills, prashant blood in urine, inability to tolerate/keep down fluids or your medications, inability to follow up with outpatient providers as instructed and should you experience these symptoms or should you have any further concerns for your wellbeing please return to the ED or call 911 immediately. PLEASE call your primary care physician as soon as possible to arrange / discuss plan for followup appointment. Appointment in the next 1-3 days is strongly encouraged if possible. PLEASE let us know here before you leave if there is anything further we can do to be of any assistance. Take care and feel Better! Prescriptions: traMADol HCL 50 mg PO Q6H 3 Days #12 tab Ondansetron [Zofran] 4 mg PO Q8HR PRN #9 tab PRN Reason: Nausea And Vomiting Referrals: Jagruti Burton MD [Primary Care Provider] - 1-2 days
[2025-02-10] MEDS: SODIUM CHLORIDE 0.9% 1,000 ML IV ONE ×2 (20:53→22:27)
[2025-02-10] MEDS: ACETAMINOPHEN TAB 325 MG TAB PO STA (20:54)
[2025-02-10] MEDS: HYDROmorphone 0.5 MG/0.5 ML SYRINGE IVP STA (20:56)
[2025-02-10] MEDS: ONDANSETRON ODT 4 MG TAB PO STA (20:56)
[2025-02-10 21:13] LABS: Basophils # (A) 0.07 10*3/uL (0.00-0.10); Basophils % (A) 0.9 %; Eosinophils # (A) 0.09 10*3/uL (0.04-0.35); Eosinophils % (A) 1.2 %; HCT 43.0 % (39.6-50.0); HGB 15.0 g/dL (13.0-17.0); Lymphocytes # (A) 0.62 10*3/uL (0.90-5.00); Lymphocytes % (A) 8.4 %; MCH 33.2 pg (27.0-32.0); MCHC 34.9 g/dL (32.0-37.0); MCV 95.1 fL (80.0-97.0); Monocytes # (A) 0.76 10*3/uL (0.20-1.00); Monocytes % (A) 10.3 %; Neutrophils # (A) 5.81 10*3/uL (1.80-7.70); Neutrophils % (A) 78.8 %; Platelet Count 236 10*3/uL (140-440); RBC 4.52 10*6/uL (4.40-5.60); RDW 12.9 % (11.5-14.5); WBC 7.38 10*3/uL (4.50-10.00)
[2025-02-10 21:24] LABS: African American GFR (CKD) 61 (>60 ml/min/1.73 sqM); Anion Gap 11 mmol/L; Blood Urea Nitrogen 17 mg/dL (9-20); Calcium 9.2 mg/dL (8.4-10.2); Carbon Dioxide 23 mmol/L (22-30); Chloride 106 mmol/L (98-107); Glucose 130 mg/dL (74-99); Non-African American GFR(CKD) 53 (>60 ml/min/1.73 sqM); Potassium 4.3 mmol/L (3.5-5.1); Sodium 140 mmol/L (137-145)
[2025-02-10 21:37] LABS: Bacteria,Urine Rare /hpf; Budding Yeast,Urine Rare /hpf; Mucus,Urine Rare /hpf; RBC,Urine 18 /hpf (0-5); Squamous Epithelial Cell,Urine 1 /hpf (0-4); WBC,Urine 4 /hpf (0-5)
--- NOTE | 2025-02-10 21:38 | CT ---
EXAMINATION TYPE: CT abdomen pelvis wo con DATE OF EXAM: 02/10/2025 9:28 PM COMPARISON: CT study dated 12/23/2022. CLINICAL INDICATION: Male, 64 years old with history of right flank pain; hx of kidney stones; Pt. c/ o pain with urination and groin discomfort x1 day TECHNIQUE: Axial CT abdomen pelvis wo con;Sagittal and coronal reformats were created on a separate workstation. Oral contrast used: without Oral Contrast CT DLP: 1441.4 mGycm, Automated exposure control for dose reduction was used. FINDINGS: LOWER CHEST: Unremarkable ABDOMEN LIVER: Unremarkable GALLBLADDER AND BILE DUCTS: Unremarkable. PANCREAS: Unremarkable. SPLEEN: Unremarkable. ADRENAL GLANDS: Unremarkable. KIDNEYS AND URETERS: 3 mm right UVJ calculus (154/226) causing mild upstream hydronephrosis. There is asymmetric right perinephric and right periureteral fat stranding/acute inflammation. No evidence of left-sided hydronephrosis. No nephrolithiasis. PELVIS BLADDER: No evidence for wall thickening or mass given limitations of exam. REPRODUCTIVE: Unremarkable. ABDOMEN & PELVIS STOMACH AND BOWEL: Stomach and duodenum are unremarkable. No evidence of bowel obstruction. Colonic d iverticulosis. PERITONEUM/RETROPERITONEUM: No evidence of pneumoperitoneum or free fluid. VASCULATURE: No evidence of aortic aneurysm. MUSCULOSKELETAL: No acute osseous abnormalities LYMPH NODES: No gross evidence for lymphadenopathy. SOFT TISSUE/ABDOMINAL WALL: Unremarkable IMPRESSION: Right UVJ 3 mm calculus causing mild upstream hydronephrosis and associated inflammatory changes as d escribed above. [facility], , 02/10/2025 9:36 PM
[2025-02-10 21:45] LABS: Color,Urine Dark Orange
[2025-02-10] MEDS: KETOROLAC 15 MG/ML 1 ML VIAL IVP STA (22:26)
[2025-02-10] MEDS: TAMSULOSIN 0.4 MG CAP.ER.24H PO STA (22:27)
== END 2025-02-11 01:00 | disposition home or self-care (01) ==
LOC: EC 19:53
DX: N13.2 Hydronephrosis with renal and ureteral calculous obstruction (principal); Z87.891 Personal history of nicotine dependence
CPT/HCPCS: 36415; 80048; 85025; 81001; 74176; 99285; 96374; 96375; 96361; J1885; J1171